=== PATIENT | female | born 1980 | race Caucasian/White ===

== ENCOUNTER 2023-02-11 06:22 | Inpatient (IN) | payer MEDICAID, SELFPAY ==
[2023-02-11] VITALS (85 sets, daily range): BP systolic 101–138; BP diastolic 59–84; PULSE 66–106; RESP 9–29; TEMP 36.5–37.5; O2SAT 96–100; BMI 26.8
--- NOTE | 2023-02-11 | DI.RAD_ITS ---
Exam(s) XR PORTABLE CHEST AP EXAM: XR PORTABLE CHEST AP CLINICAL HISTORY: post subclavian line placement TECHNIQUE: 2D digital imaging was performed of the chest. One image was obtained. An AP view was ob tained. COMPARISON: CT RENAL COLIC WO CONTRAST from 04/25/2012 CT ABD PELVIS WITH CONTRAST from 06/18/2012 FINDINGS: MEDIASTINUM: Normal. HEART: Normal. PULMONARY VASCULATURE: Normal. LUNGS: Clear. PLEURAL SPACE: No pleural effusion or pneumothorax. BONE:Within normal limits for the patient's age. There is an old healed right clavicular fracture. OTHER FINDINGS:The tip of the right subclavian line is seen within the right atrium. The tip of the enteric tube is in good position in the stomach. IMPRESSION: 1. The right subclavian line is in place with its tip in the upper right atrium. 2. No evidence of a pneumothorax. 3. The enteric tube is in good position with its tip in the stomach. DATA REPOSITORY: RADIATION DOSE DELIVERED:
--- NOTE | 2023-02-11 06:34 | W.ED.GENAD ---
Discharge Plan Discharge Details Chief Complaint: Abd Prob Primary Care Provider: Margarette,Local ED Provider: John Falcon Home Meds and New Rx's Prescriptions: No Action methadone 10 mg/5 mL Solution 90 mg PO DAILY Medical Decision Making 42-year-old female with a past medical history of appendectomy, tonsillectomy, type 2 diabetes when she was obese before, but this is resolved with weight loss, and history of IV drug use, who presents today for evaluation of right upper quadrant pain, nausea and vomiting. Pain has been present for the last month, and comes and goes in severity. It seems to be associated with food and diet occasionally. However over the last 24 to 48 hours it became severe. She has been vomiting. She did take fentanyl which only minimally helped with the pain. She denies any chest pain or shortness of breath. No urinary complaints. No other complaints at this time. Exam demonstrates a surprisingly large palpable mass in the right upper quadrant. Concern for enlarged gallbladder/cholecystitis. We will get CT scan, treat her pain, rehydrate, monitor closely and reassess. Patient will be signed out to my colleague for follow-up on labs and imaging and reassessment. HPI General Date/Time Provider Initiated Documentation: 02/11/23 06:32. HPI Narrative: 42-year-old female with a past medical history of appendectomy, tonsillectomy, type 2 diabetes when she was obese before, but this is resolved with weight loss, and history of IV drug use, who presents today for evaluation of right upper quadrant pain, nausea and vomiting. Pain has been present for the last month, and comes and goes in severity. It seems to be associated with food and diet occasionally. However over the last 24 to 48 hours it became severe. She has been vomiting. She did take fentanyl which only minimally helped with the pain. She denies any chest pain or shortness of breath. No urinary complaints. No other complaints at this time. Related Data Home Medications Medication Instructions Recorded Confirmed methadone 10 mg/5 mL oral solution 90 mg PO DAILY 02/11/23 02/11/23 Allergies Allergy/AdvReac Type Severity Reaction Status Date / Time No Known Allergies Allergy Unverified 02/11/23 06:34 General Stated Complaint: Abd Prob FAUSTINO: 3 Review of Systems All systems reviewed & are unremarkable except as noted in HPI and below PFSH All Active Problems Diarrhea (Active) Medical History Depression (~2002) situational. took meds x6mo. no PP depression. Diabetes mellitus, type 2 Class C. Onset 21yo. doesnt take meds or see MDs when not . Nl eye exam 08/2015. Obesity 08/2015 BMI 34. Tobacco use Surgical History Appendectomy Tonsillectomy and adenoidectomy Family History Mother Ulcerative colitis Social History Smoking/Tobacco Use Status: Current every day Tobacco Type: cigarettes Smoking risk assessment performed?: Yes Alcohol Intake: former Drug use: Never Substance use type: opiates Exam Narrative Exam Narrative: 1.Const: Well-nourished, Well-developed, appearing stated age 2.Eyes: PERRL, no conjunctival injection, and symmetrical lids. 3.ENT: Atraumatic external nose and ears. Moist MM. Neck: Symmetric, trachea midline, No thyromegaly. 4.CVS: +S1/S2, No murmurs or gallops. Peripheral pulses 2+ and equal in all extremities. Brisk capillary refill in all extremities. 5.RESP: Unlabored respiratory effort. Clear to auscultation bilaterally. No wheezes rales or rhonchi 6.GI: Soft, patient demonstrates tenderness in the right upper quadrant, there is a palpable mass which I suspect is the bladder in the right upper quadrant. Notably tender. Voluntary guarding. Rebound is present.. 7.MSK: Normocephalic/Atraumatic, Extremities w/o deformity or ttp No cyanosis or clubbing, Normal movement of all extremities 8.Skin: Warm, Dry. No rashes or lesions. 9.Neuro: manager fund II-XII grossly intact. Sensation grossly intact, no focal neurologic deficits. 10.Psych: (AAO) x3. Appropriate mood and affect Course Vital Signs Vital signs: Vital Signs Temperature 36.5 C 02/11/23 06:28 Pulse 106 H 02/11/23 06:28 Respiratory Rate 16 02/11/23 06:28 Blood Pressure 115/68 02/11/23 06:28 Pulse Oximetry 100 02/11/23 06:28 Temperature 36.5 C 02/11/23 06:28 Pulse 106 H 02/11/23 06:28 Respiratory Rate 16 02/11/23 06:28 Respiratory Effort Normal 02/11/23 06:28 Blood Pressure 115/68 02/11/23 06:28 Blood Pressure Position Supine 02/11/23 06:28 Pulse Oximetry 100 02/11/23 06:28 Oxygen Delivery Method Room Air 02/11/23 06:28 Oxygen Flow Rate 0 02/11/23 06:28 Pain Level 10 02/11/23 06:28
[2023-02-11 06:59] LABS: Abs Immature Grans 0.07 10^3/uL (0.0-0.06); Absolute Basophil Count 0.07 10^3/uL (0.0-0.2); Absolute Eosinophil Count 0.29 10^3/uL (0.0-0.7); Absolute Monocyte Count 1.12 10^3/uL (0.1-0.8); Basophils % 0.4; Eosinophils % 1.6; HCT 28.4 % (36.0-46.0); HGB 9.1 g/dL (11.2-15.7); Immature Grans % 0.4; MCH 25.1 pg (27.0-33.0); MCV 78 fL (80-95); MPV 8.5 fL (8.0-11.0); Monocytes % 6.1; Neutrophils % 79.5; RBC 3.63 10^6/uL (3.93-5.22); RDW 18.7 % (11.7-14.6); RDW-SD 52.9 fL; WBC 18.32 10^3/uL (4.4-10.8)
[2023-02-11] MEDS: Normal Saline 1,000 ML 1000 ML IV (06:59)
[2023-02-11] MEDS: Ondansetron 4 MG/2 ML VIAL IVP (07:00)
[2023-02-11] MEDS: Ketorolac 15 MG/ML VIAL IVP ×3 (07:02→23:17)
[2023-02-11 07:07] LABS: Absolute Neutrophil Count 14.56 10^3/uL (1.2-6.7)
[2023-02-11 07:10] LABS: PTT Activated 27.9 sec (21.5-31.9); Prothrombin Time 10.1 sec (9.3-11.0)
[2023-02-11 07:14] LABS: ALT 39 U/L (14-59); AST 30 U/L (15-37); Albumin 2.1 g/dL (3.4-5.0); Alkaline Phosphatase 531 U/L (46-116); Anion Gap 7.2 mmol/L (3-11); BUN 9 mg/dL (7-18); Bilirubin, Direct 0.9 mg/dL (0.0-0.2); CO2 30.8 mmol/L (21.0-32.0); CREATININE 0.8 mg/dL (0.55-1.02); Calcium 8.8 mg/dL (8.5-10.1); Chloride 98 mmol/L (98-107); Estimated GFR 95.46 (mL/min/1.73m2); Glucose 161 mg/dL (74-106); Lipase 69 U/L (16-77); Potassium 3.3 mmol/L (3.5-5.1); Sodium 136 mmol/L (136-145); Total Protein 8.8 g/dL (6.4-8.2)
[2023-02-11 07:15] LABS: Diff Comment Diff Reviewed; Hypochromasia 1+; Platelet Count 907 10^3/uL (130-400); Poikilocytes 2+
[2023-02-11] MEDS: Omnipaque 350 MG/ML 100 ML BTL IJ (07:53)
[2023-02-11] MEDS: Normal Saline - Diluent 50 ML VIAL IV (07:54)
--- NOTE | 2023-02-11 08:12 | DI.CT_ITS ---
Exam(s) CT ABDOMEN PELVIS W EXAM: CT ABDOMEN PELVIS W CLINICAL HISTORY: ruq pain. TECHNIQUE: Imaging Protocol: Axial computed tomography images with coronal and sagittal reformatted images were created and reviewed CONTRAST MATERIAL: Intravenous: Omnipaque 350 Contrast volume:100 ml Oral: no COMPARISON: CT ABD PELVIS WITH CONTRAST from 06/18/2012 FINDINGS: ABDOMEN: Lung Bases: Normal where visualized. Liver: Normal density. No measurable mass. Fluid tracking along portal veins. Inflammation of portion of the liver adjacent to the gallbladder. Gallbladder and biliary tract: Gallbladder wall is extremely thickened. There is no air within the ga llbladder wall. There is a large amount of inflammatory tissue. Stones are noted within the lumen. Th e inflammation affects the adjacent hepatic flexure. There is no biliary dilatation or biliary air.. The pancreas is unremarkable. Pancreas: Normal density, no abnormal calcifications or inflammatory process. Spleen: Normal. Kidneys: Normal size, contour and axis. No radiodense stones or obstructive uropathy. No suspicious m asses seen. Adrenal glands: No masses seen. Abdominal Aorta: Abdominal portion non-dilated. Soft tissues: Unremarkable. PELVIS: Bladder: No gross wall thickening. No calculi.No focal mass. Bowel: No obstruction. No bowel wall thickening. Appendix normal. Peritoneal cavity: There is a small amount of fluid around the liver extending along the right par[place] lic gutter into the pelvis. Bones: Within normal limits for age. Reproductive organs: Within normal limits. Lymph nodes: Unremarkable. Impression: Severe inflammation of the gallbladder consistent with acute cholecystitis. Gallstones are present. T here is no biliary dilatation. Findings discussed with Dr. Pearl of the emergency department. RADIATION DOSE DELIVERED: 813.87mGy.cm Total DLP DATA REPOSITORY: All CT scans at this facility are submitted to the National Radiology Data Registry (NRDR) Dose Index Registry (DIR) with the [employer] (A[employer]). RADIATION OPTIMIZATION: All CT scans at this facility use at least one of these dose optimization te chniques: automated exposure control; mA and/or kV adjustment per patient size (includes targeted exa ms where dose is matched to clinical indication); or iterative reconstruction.
[2023-02-11] MEDS: PIPERACILLIN/TAZO 4.5 GM in Normal Saline 100 ML IVPB (08:14)
[2023-02-11 08:36] LABS: Bilirubin Negative (Negative); Blood Negative (Negative); Clarity Clear (Clear); Glucose Negative (Negative); Ketones Trace mg/dL (Negative); Leukocyte Esterase Negative (Negative); Nitrite Negative (Negative); Specific Gravity 1.015 (1.005-1.025)
[2023-02-11 09:11] LABS: *AMPHETAMINES SCREEN URINE Negative (Negative); *BARBITURATES SCREEN URINE Negative (Negative); *BENZODIAZEPINES SCREEN URINE Negative (Negative); Cannabinoids THC Negative (Negative); Cocaine Screen,Urine Positive (Negative); METHADONE URINE SCREEN Negative (Negative); OPIATES URINE SCREEN Positive (Negative); Tricyclic Antidepressants Negative (Negative)
[2023-02-11 09:40] LABS: Abs Immature Grans 0.09 10^3/uL (0.0-0.06); Basophils % 0.5; Eosinophils % 1.5; HCT 23.3 % (36.0-46.0); HGB 7.4 g/dL (11.2-15.7); Immature Grans % 0.5; Lymphocytes % 13.7; MCH 25.3 pg (27.0-33.0); MCHC 31.8 % (32.0-36.0); MCV 80 fL (80-95); Monocytes % 4.7; Neutrophils % 79.1; RBC 2.93 10^6/uL (3.93-5.22); RDW 18.8 % (11.7-14.6); RDW-SD 54.1 fL; WBC 19.71 10^3/uL (4.4-10.8)
[2023-02-11 09:42] LABS: Absolute Monocyte Count 0.93 10^3/uL (0.1-0.8); Absolute Neutrophil Count 15.59 10^3/uL (1.2-6.7)
[2023-02-11 09:51] LABS: C-Reactive Protein 5.09 mg/dL (0.0-0.3); Lipase 58 U/L (16-77)
--- NOTE | 2023-02-11 10:00 | RT.EKG_ITS ---
APPROVED REPORT Exam: Resting ECG Reason for Exam: preop Patient Location: E HR:73 bpm ECG Measurements Heart Rate 73 AXIS CA 137 P 65 QRSd 84 QRS 66 QT 405 T 31 QTc 448 Conclusion Sinus arrhythmia...V-rate 64- 83, variation>10%
--- NOTE | 2023-02-11 10:04 | W.ANESPRE ---
General Info Date of Service Date Performed: 02/11/23 Height: 5 ft 5 in Weight: 73.028 kg Body Mass Index (BMI): 26.8 Meds Allergies and Home Medications Allergies Allergy/AdvReac Type Severity Reaction Status Date / Time No Known Allergies Allergy Unverified 02/11/23 06:34 Home Medication Medication Instructions Recorded methadone 10 mg/5 mL oral solution 90 mg PO DAILY 02/11/23 Current Visit Medications: Current Medications Generic Name Dose Route Start Last Admin Trade Name Jae PRN Reason Stop Dose Admin Iohexol 100 ml 02/11/23 08:00 02/11/23 07:53 Omnipaque 350 Mg/Ml 100 Ml Btl IJ 03/13/23 23:59 100 ml DIRECTED ANEUDY Administration Sodium Chloride 50 ml 02/11/23 08:00 02/11/23 07:54 Normal Saline - Diluent 50 Ml Vial IV 50 ml .FOR DI USE ANEUDY Administration PFSH Active Problems Active Problems: Problem Status Onset Code Diarrhea R19.7 Medical History Medical History Depression (~2002) situational. took meds x6mo. no PP depression. Diabetes mellitus, type 2 Class C. Onset 21yo. doesnt take meds or see MDs when not . Nl eye exam 08/2015. Obesity 08/2015 BMI 34. Tobacco use Surgical History Surgical History Appendectomy Tonsillectomy and adenoidectomy Tobacco Smoking/Tobacco Use Status: Current every day Tobacco Type: cigarettes Alcohol Alcohol Intake: former Substance Use Substance use: Never Substance use type: opiates Vital Signs and Lab Results Vital Signs Most Recent Vital Signs in EMR: Most Recent Vital Signs Temp Pulse Resp BP Pulse Ox 36.5 C 106 H 16 115/68 100 02/11/23 06:28 02/11/23 06:28 02/11/23 06:28 02/11/23 06:28 02/11/23 06:28 Point of Care Results Point of Care Results: POC- Test(urine) Negative 02/11/23 09:06 Lab Results 02/11/23 06:50 02/11/23 06:50 Blood Type / Crossmatch: Patient ABO/Rh A Positive 02/11/23 Antibody Screen NEGATIVE 02/11/23 Crossmatch See Detail 02/11/23 Complete Blood Count: White Blood Count 19.71 10^3/uL (4.4-10.8) H 02/11/23 09:15 Red Blood Count 2.93 10^6/uL (3.93-5.22) L 02/11/23 09:15 Hemoglobin 7.4 g/dL (11.2-15.7) L 02/11/23 09:15 Hematocrit 23.3 % (36.0-46.0) L 02/11/23 09:15 Platelet Count 1062 10^3/uL (130-400) H* 02/11/23 09:15 Venous Blood Lactate 1.0 mmol/L (0.6-1.4) 02/11/23 06:50 Complete Metabolic Panel: Sodium 136 mmol/L (136-145) 02/11/23 06:50 Potassium 3.3 mmol/L (3.5-5.1) L 02/11/23 06:50 Chloride 98 mmol/L (98-107) 02/11/23 06:50 Carbon Dioxide 30.8 mmol/L (21.0-32.0) 02/11/23 06:50 BUN 9 mg/dL (7-18) 02/11/23 06:50 Creatinine 0.8 mg/dL (0.55-1.02) 02/11/23 06:50 Est GFR (CKD-EPI 2020) 95.46 (mL/min/1.73m2) 02/11/23 06:50 Calcium 8.8 mg/dL (8.5-10.1) 02/11/23 06:50 Albumin 2.1 g/dL (3.4-5.0) L 02/11/23 06:50 Glucose 161 mg/dL (74-106) H 02/11/23 06:50 C-Reactive Protein 5.09 mg/dL (0.0-0.3) H 02/11/23 09:15 Liver Function Panel: Alanine Aminotransferase (ALT/SGPT) 39 U/L (14-59) 02/11/23 06:50 Aspartate Amino Transf (AST/SGOT) 30 U/L (15-37) 02/11/23 06:50 Coagulation Panel: INR International Normalized Ratio 1.0 (0.9-1.1) 02/11/23 06:50 Prothrombin Time 10.1 sec (9.3-11.0) 02/11/23 06:50 Activated Partial Thromboplast Time 27.9 sec (21.5-31.9) 02/11/23 06:50 Cardiac Panel: No Data to Display Arterial Blood Gas: No Data to Display Venous Blood Gas: No Data to Display Pancreas Panel: Lipase 58 U/L (16-77) 02/11/23 09:15 Thyroid Panel: No Data to Display Infectious Disease: Coronavirus (COVID-19)(PCR) Negative (Negative) 02/11/23 10:25 Coronavirus 2019 Source Nasal/Nares 02/11/23 10:25 HIV (1&2) Ag and Ab, 4th Generation Pending 02/11/23 09:30 Hepatitis C Antibody Pending 02/11/23 09:30 Blood Cultures: No Data to Display Toxicology Panel: Urine Amphetamines Screen Negative (Negative) 02/11/23 08:13 Urine Benzodiazepines Screen Negative (Negative) 02/11/23 08:13 Urine Barbiturates Screen Negative (Negative) 02/11/23 08:13 Urine Cocaine Screen Positive (Negative) A 02/11/23 08:13 Urine Methadone Screen Negative (Negative) 02/11/23 08:13 Urine Opiates Screen Positive (Negative) A 02/11/23 08:13 Ur Tricyclic Antidepressants Screen Negative (Negative) 02/11/23 08:13 Ur Tetrahydrocannabinol (THC) Scrn Negative (Negative) 02/11/23 08:13 Panel: No Data to Display Anesthesia Assessment and Plan Anesthesia History Personal History: No History of Anesthesia Complications Family History: No Family History of Anesthesia Complications Exercise Tolerance Exercise Tolerance: Metabolic Equivalents>4 Cardiac & Pulmonary Exam Cardiac Exam: Normal S1/S2 Heart Sounds Pulmonary Exam: Clear Bilateral Breath Sounds Implantable Cardiac Device Does patient have a Pacemaker or an ICD?: No Airway Exam Known Difficult Airway: No Mallampati Class: 2 Mouth Opening: Normal (> 3cm) Thyromental Distance: Greater than 3 cm Neck Range of Motion: Full ROM Neck Circumference: Normal Teeth Condition: Normal Dentition ASA Classification ASA Score: ASA 3 Emergency Case?: Yes NPO Status NPO Status: NPO Clears >2 hours, Solids >8 hours Status Status: Negative HCG Anesthesia Plan Resuscitation Status: Full Code Anesthesia Technique: General Anesthesia Airway Planned: Endotracheal Tube Pain Management: Surgeon and patient request nerve block Monitors Used: Standard Monitors, Arterial Line (+/-) and Central Line (+/-) Preoperative Comments:: 42 yo female how presented to the ED today with abdominal pain. CT scan shows severe inflammation of the gallbladder. pip/adina, ketorolac, zofran, 1000 mL NS, and KCL given in the ED. currently in the ICU getting blood. Sig PMHx: IVDU/cocaine (used fentanyl last night, methadone also listed on med list, UDS + for cocaine and opiates. hasn't had methadone in ~ 2 weeks, has been using a bag or two of fentanyl a day), depression, DM2 (resolved with weight loss), smoker, plt: 1000 hgb: 7.4 EKG: SR. Discussed risk, benefits, and alternatives of GA, art line, central line, epidural, ESPB. She is not interested in an epidural at this time as she doesn't feel that she can sit still to have it done given her pain. Plan: GA, +/- art line/central line, ESPB.
[2023-02-11 10:20] LABS: Procalcitonin 0.1 ng/mL
[2023-02-11 10:22] LABS: Diff Comment Diff Reviewed; Hypochromasia 1+; Platelet Count 1062 10^3/uL (130-400)
[2023-02-11 10:34] LABS: Source Nasal/Nares
[2023-02-11] MEDS: POTASSIUM CHLORIDE 10 MEQ/100 ML BAG 100 MEQ IVPB (10:42)
[2023-02-11] MEDS: MORPHine 2 MG/ML SYR IVP (10:45)
[2023-02-11 11:37] LABS: COVID-19 PCR Negative (Negative)
[2023-02-11] MEDS: ACETAMINOPHEN 1,000 MG/100 ML BTL 400 MG IVPB ×3 (11:38→23:17)
[2023-02-11] MEDS: diphenhydrAMINE 50 MG/ML VIAL 25 MG IVP (12:14)
[2023-02-11] MEDS: MORPHine 4 MG/ML SYR 2 MG IVP (13:19)
[2023-02-11] MEDS: ELECTROLYTE-R SOLUTION 1,000 ML 30 ML IV ×2 (14:01→17:55)
--- NOTE | 2023-02-11 14:11 | W.PM.HP.N ---
Date of service: 02/11/23 Time of Service: 09:00 Assessment and Plan Assessment and plan (1) Acute gangrenous cholecystitis: Status: Acute Assessment and plan: -admit ICU -hospitalists consulted for pain management/sepsis control and detoxing -zosyn OR for open filiberto high risk for surgery due to substance use and sepsis PT will require open cholecystectomy. Risks including: bleeding, infection, pneumonia, blood clots, complications of anesthesia, damage to bowel, bladder, blood vessels, or bile ducts, liver. Pt will require blood transfusions. becuase of the Degree of infection, patient is a high risk profile the injury, bowel injury, bile duct injury, recurrent infections, hernias, and other. We will need to leave the skin open and close at later date She will have ngt/lomeli/wound vac/central line/A line. - We will have issue w/ pain control and consider ketamine drip for postOP pain control. I did review her CT w/ radiology. 60 minutes spent in consultation today (2) Intravenous drug abuse, continuous: Status: Acute (3) Depression: (4) Tobacco use: (5) Sepsis: Status: Acute (6) Diarrhea: Status: Active (7) Diabetes mellitus, type 2: History of Present Illness Narrative: Pt presented to the ER w/ N/V and abdominal pain. Pt states she has really been sick for the past 2 months. FOr the past 2 weeks shes had severe pain and hasn't even been able to keep her methadone appointments. She has just been using IV fently and crack cocaine for pain control. She last ate at 3am. She last used drugs at 12 midnight. She does not seek regular medical care No prescription meds other than methadone. She has not had methadone in the last 2 wks. PShx T&A as child ruptured appendix no problems w/ anesthesia that she is aware of +tobacco Review of Systems Narrative: fever/chills N/V abdominal pain and diarrhea IVDA All systems reviewed & are unremarkable except as noted in HPI and below PFSH All Active Problems (Updated 02/11/23 @ 14:21 by Johanne Ruiz DO) Tobacco use (Acute 08/29/15) Sepsis (Acute) Intravenous drug abuse, continuous (Acute) Acute gangrenous cholecystitis (Acute) Diarrhea (Active) Medical History Depression (~2002) situational. took meds x6mo. no PP depression. Diabetes mellitus, type 2 Class C. Onset 21yo. doesnt take meds or see MDs when not . Nl eye exam 08/2015. Obesity 08/2015 BMI 34. Tobacco use Surgical History Appendectomy Tonsillectomy and adenoidectomy Family History Mother Ulcerative colitis Social History Smoking/Tobacco Use Status: Current every day Tobacco Type: cigarettes Smoking risk assessment performed?: Yes Alcohol Intake: former Drug use: Never Substance use type: opiates Meds Allergies and Home Medications Allergies Allergy/AdvReac Type Severity Reaction Status Date / Time No Known Allergies Allergy Unverified 02/11/23 06:34 Home Medications Medication Instructions Recorded Confirmed Type methadone 10 mg/5 mL oral solution 90 mg PO DAILY 02/11/23 02/11/23 History Exam Const General: cooperative, No well groomed, anxious, disheveled and ill appearing Nutritional Appearance: malnourished HENMT Other: No jaundice poor dentition Resp Effort & Inspection: normal respiratory effort and able to speak in complete sentences Auscultation: clear to auscultation bilaterally Cardio Rate: regular rate Rhythm: regular rhythm GI Other: firm mass in the RUQ. localized rebound and guarding. no BS post sx changes at umbilicus. No hernia Extrem Other: muscle wasting mult tattoos adn pericings. mult appears of skin popping. skin infections in varies degrees of healing 2x2cm abscess LLE. Results Labs 02/11/23 09:15 02/11/23 06:50 Labs: Laboratory Results - last 24 hr 02/11/23 02/11/23 02/11/23 06:50 06:50 06:50 WBC RBC Hgb Hct MCV MCH MCHC RDW Plt Count MPV Immature Gran % Neutrophils % Lymphocytes % Monocytes % Eosinophils % Basophils % Nucleated RBC % Absolute Neutrophils Absolute Lymphocytes Absolute Monocytes Absolute Eosinophils Absolute Basophils RBC Morphology Hypochromasia Poikilocytosis PT INR APTT VBG Lactate 1.0 Sodium 136 Cancelled Potassium 3.3 L Cancelled Chloride 98 Cancelled Carbon Dioxide 30.8 Cancelled Anion Gap 7.2 Cancelled BUN 9 Cancelled Creatinine 0.8 Cancelled Est GFR (CKD-EPI 2020) 95.46 Cancelled Glucose 161 H Cancelled Calcium 8.8 Cancelled Total Bilirubin 1.0 Cancelled Conjugated Bilirubin 0.9 H AST 30 Cancelled ALT 39 Cancelled Alkaline Phosphatase 531 H Cancelled C-Reactive Protein Total Protein 8.8 H Cancelled Albumin 2.1 L Cancelled Lipase 69 Procalcitonin Urine Color Urine Clarity Urine pH Ur Specific [place] Urine Protein Urine Ketones Urine Blood Urine Nitrite Urine Bilirubin Urine Urobilinogen Ur Leukocyte Esterase Urine Glucose Urine Opiates Screen Urine Methadone Screen Ur Barbiturates Screen Ur Tricyclics Screen Ur Amphetamines Screen U Benzodiazepines Scrn Urine Cocaine Screen Ur THC Screen COVID-19 Source SARS-CoV-2 (PCR) Patient ABO/Rh Antibody Screen Crossmatch 02/11/23 02/11/23 02/11/23 06:50 06:50 08:13 WBC 18.32 H RBC 3.63 L Hgb 9.1 L Hct 28.4 L MCV 78 L MCH 25.1 L MCHC 32.0 RDW 18.7 H Plt Count 907 H* MPV 8.5 Immature Gran % 0.4 Neutrophils % 79.5 Lymphocytes % 12.0 Monocytes % 6.1 Eosinophils % 1.6 Basophils % 0.4 Nucleated RBC % 0.0 Absolute Neutrophils 14.56 H Absolute Lymphocytes 2.20 Absolute Monocytes 1.12 H Absolute Eosinophils 0.29 Absolute Basophils 0.07 RBC Morphology See Below Hypochromasia 1+ Poikilocytosis 2+ PT 10.1 INR 1.0 APTT 27.9 VBG Lactate Sodium Potassium Chloride Carbon Dioxide Anion Gap BUN Creatinine Est GFR (CKD-EPI 2020) Glucose Calcium Total Bilirubin Conjugated Bilirubin AST ALT Alkaline Phosphatase C-Reactive Protein Total Protein Albumin Lipase Procalcitonin Urine Color Yellow Urine Clarity Clear Urine pH 8.0 Ur Specific [place] 1.015 Urine Protein Negative Urine Ketones Trace H Urine Blood Negative Urine Nitrite Negative Urine Bilirubin Negative Urine Urobilinogen 1.0 H Ur Leukocyte Esterase Negative Urine Glucose Negative Urine Opiates Screen Urine Methadone Screen Ur Barbiturates Screen Ur Tricyclics Screen Ur Amphetamines Screen U Benzodiazepines Scrn Urine Cocaine Screen Ur THC Screen COVID-19 Source SARS-CoV-2 (PCR) Patient ABO/Rh Antibody Screen Crossmatch 02/11/23 02/11/23 02/11/23 08:13 09:15 09:15 WBC 19.71 H RBC 2.93 L Hgb 7.4 L Hct 23.3 L MCV 80 MCH 25.3 L MCHC 31.8 L RDW 18.8 H Plt Count 1062 H* MPV 9.0 Immature Gran % 0.5 Neutrophils % 79.1 Lymphocytes % 13.7 Monocytes % 4.7 Eosinophils % 1.5 Basophils % 0.5 Nucleated RBC % 0.0 Absolute Neutrophils 15.59 H Absolute Lymphocytes 2.70 Absolute Monocytes 0.93 H Absolute Eosinophils 0.30 Absolute Basophils 0.10 RBC Morphology See Below Hypochromasia 1+ Poikilocytosis PT INR APTT VBG Lactate Sodium Potassium Chloride Carbon Dioxide Anion Gap BUN Creatinine Est GFR (CKD-EPI 2020) Glucose Calcium Total Bilirubin Conjugated Bilirubin AST ALT Alkaline Phosphatase C-Reactive Protein 5.09 H Total Protein Albumin Lipase 58 Procalcitonin Urine Color Urine Clarity Urine pH Ur Specific [place] Urine Protein Urine Ketones Urine Blood Urine Nitrite Urine Bilirubin Urine Urobilinogen Ur Leukocyte Esterase Urine Glucose Urine Opiates Screen Positive A Urine Methadone Screen Negative Ur Barbiturates Screen Negative Ur Tricyclics Screen Negative Ur Amphetamines Screen Negative U Benzodiazepines Scrn Negative Urine Cocaine Screen Positive A Ur THC Screen Negative COVID-19 Source SARS-CoV-2 (PCR) Patient ABO/Rh Antibody Screen Crossmatch 02/11/23 02/11/23 02/11/23 09:15 10:25 10:35 WBC RBC Hgb Hct MCV MCH MCHC RDW Plt Count MPV Immature Gran % Neutrophils % Lymphocytes % Monocytes % Eosinophils % Basophils % Nucleated RBC % Absolute Neutrophils Absolute Lymphocytes Absolute Monocytes Absolute Eosinophils Absolute Basophils RBC Morphology Hypochromasia Poikilocytosis PT INR APTT VBG Lactate Sodium Potassium Chloride Carbon Dioxide Anion Gap BUN Creatinine Est GFR (CKD-EPI 2020) Glucose Calcium Total Bilirubin Conjugated Bilirubin AST ALT Alkaline Phosphatase C-Reactive Protein Total Protein Albumin Lipase Procalcitonin 0.1 Urine Color Urine Clarity Urine pH Ur Specific [place] Urine Protein Urine Ketones Urine Blood Urine Nitrite Urine Bilirubin Urine Urobilinogen Ur Leukocyte Esterase Urine Glucose Urine Opiates Screen Urine Methadone Screen Ur Barbiturates Screen Ur Tricyclics Screen Ur Amphetamines Screen U Benzodiazepines Scrn Urine Cocaine Screen Ur THC Screen COVID-19 Source Nasal/Nares SARS-CoV-2 (PCR) Negative Patient ABO/Rh A Positive Antibody Screen NEGATIVE Crossmatch See Detail Last Vital Signs Temp 37.3 C 02/11/23 13:12 Pulse 102 H 02/11/23 13:12 Resp 22 02/11/23 13:12 BP 106/81 02/11/23 13:12 Pulse Ox 96 02/11/23 12:55 Anemia profile Hgb 7.4 g/dL (11.2-15.7) L 02/11/23 Hct 23.3 % (36.0-46.0) L 02/11/23 MCV 80 fL (80-95) 02/11/23 RDW 18.8 % (11.7-14.6) H 02/11/23 Basic Metabolic Sodium 136 mmol/L (136-145) 02/11/23 Potassium 3.3 mmol/L (3.5-5.1) L 02/11/23 Chloride 98 mmol/L (98-107) 02/11/23 Carbon Dioxide 30.8 mmol/L (21.0-32.0) 02/11/23 BUN 9 mg/dL (7-18) 02/11/23 Creatinine 0.8 mg/dL (0.55-1.02) 02/11/23 Glucose 161 mg/dL (74-106) H 02/11/23 CBC White Blood Count 19.71 10^3/uL (4.4-10.8) H 02/11/23 Red Blood Count 2.93 10^6/uL (3.93-5.22) L 02/11/23 Hemoglobin 7.4 g/dL (11.2-15.7) L 02/11/23 Hematocrit 23.3 % (36.0-46.0) L 02/11/23 Mean Corpuscular Volume 80 fL (80-95) 02/11/23 Mean Corpuscular Hemoglobin 25.3 pg (27.0-33.0) L 02/11/23 Mean Corpuscular Hemoglobin Concent 31.8 % (32.0-36.0) L 02/11/23 Red Cell Distribution Width 18.8 % (11.7-14.6) H 02/11/23 Platelet Count 1062 10^3/uL (130-400) H* 02/11/23 Mean Platelet Volume 9.0 fL (8.0-11.0) 02/11/23 Neutrophils % 79.1 02/11/23 Lymphocytes % 13.7 02/11/23 Monocytes % 4.7 02/11/23 Eosinophils % 1.5 02/11/23 Basophils % 0.5 02/11/23 Immature Granulocytes % 0.5 02/11/23 Comprehensive Metabolic Panel Sodium 136 mmol/L (136-145) 02/11/23 06:50 Potassium 3.3 mmol/L (3.5-5.1) L 02/11/23 06:50 Chloride 98 mmol/L (98-107) 02/11/23 06:50 Carbon Dioxide 30.8 mmol/L (21.0-32.0) 02/11/23 06:50 BUN 9 mg/dL (7-18) 02/11/23 06:50 Creatinine 0.8 mg/dL (0.55-1.02) 02/11/23 06:50 Glucose 161 mg/dL (74-106) H 02/11/23 06:50 Calcium 8.8 mg/dL (8.5-10.1) 02/11/23 06:50 Conjugated Bilirubin 0.9 mg/dL (0.0-0.2) H 02/11/23 06:50 Total Bilirubin 1.0 mg/dL (0.2-1.0) 02/11/23 06:50 ALT 39 U/L (14-59) 02/11/23 06:50 AST 30 U/L (15-37) 02/11/23 06:50 Alkaline Phosphatase 531 U/L (46-116) H 02/11/23 06:50 Total Protein 8.8 g/dL (6.4-8.2) H 02/11/23 06:50 Albumin 2.1 g/dL (3.4-5.0) L 02/11/23 06:50 Diabetes results Hemoglobin A1c 6.6 % (4.5-6.2) H 07/02/15 Glucose 161 mg/dL (74-106) H 02/11/23 Microalb/Creat Ratio 3.8 ug/mg CR 05/10/13 LDL Cholesterol Direct 141 mg/dL 09/10/13 HDL Cholesterol 36 mg/dL (40-60) L 09/10/13 Triglycerides 111 mg/dL (15-150) 09/10/13 BUN 9 mg/dL (7-18) 02/11/23 Creatinine 0.8 mg/dL (0.55-1.02) 02/11/23 Est GFR (CKD-EPI 2020) 95.46 (mL/min/1.73m2) 02/11/23 Sodium 136 mmol/L (136-145) 02/11/23 Potassium 3.3 mmol/L (3.5-5.1) L 02/11/23 Chloride 98 mmol/L (98-107) 02/11/23 Carbon Dioxide 30.8 mmol/L (21.0-32.0) 02/11/23 Calcium 8.8 mg/dL (8.5-10.1) 02/11/23 AST 30 U/L (15-37) 02/11/23 ALT 39 U/L (14-59) 02/11/23 Total Protein 8.8 g/dL (6.4-8.2) H 02/11/23 Albumin 2.1 g/dL (3.4-5.0) L 02/11/23 TSH 1.87 uIU/mL (0.36-3.74) 03/28/12 Time Spent Time spent with Patient: 55-74 minutes Time was spent: preparing to see the patient(eg.review tests), obtaining and/or reviewing separately otained hiistory, ordering medications,tests, procedures, referring, communicating with other health health careers instructor, indepentently interpreting results, counseling the patient and care coordination
[2023-02-11] MEDS: PIPERACILLIN/TAZO 3.375 GM in Normal Saline 50 ML IVPB ×2 (14:30→21:13)
--- NOTE | 2023-02-11 15:50 | SOFT_PTH ---
PATIENT: Mabel Barahona LOC: [id number]#:[id number] AGE/SX: 42/F ROOM: 209 RE02/11/[address]: Johanne Ruiz : 1980 BED: A DIS: 02/20/2023 SPEC #: [id number] RECD: 02/11/23 17:56 STATUS: AZAEL REQ #: [id number] BIRD: 02/11/23 15:[address]: Johanne Ruiz DEPT: Surgical Specimen RECD BY: Teagan Suarez ENTERED: 02/11/23 18:02 SP TYPE: SOFT OTHR DR: No Local Tissues: 1 - SOFT TISSUE MISC (INC. LIPOMA) Procedures: GROSS AND MICRO LEVEL 4 Comments: [id number]
[2023-02-11] MEDS: Lidocaine 1% Multi-Dose W/EPI 1/100,000 50 ML VIAL (16:22)
--- NOTE | 2023-02-11 16:55 | ROE_ITS ---
Date of service: 02/11/23 Time of Service: 16:55 Operative Note Operative Note DATE OF PROCEDURE: 02/11/23 PRE-OP DIAGNOSIS: acute cholecystitis/cholelithiasis w/ abscess POST-OP DIAGNOSIS: other (unressectible GB due to intense inflammation reaction) PROCEDURE: ex lap SURGEON: Johanne Ruiz SPRING INTERN: Ruth Acevedo ANESTHESIA TYPE: Local By Surgeon and General LMA/ETT Refer to Anesthesia Record ESTIMATED BLOOD LOSS: 100 PATHOLOGY: other COMPLICATIONS: None Patient was transported to: ICU Patient's condition: stable Procedure Description: Patient is a 42-year-old female who presented to the ER today with vomiting and abdominal pain. Patient has a CT scan and lab work consistent with a severe cholecystitis with abscess. Based on the severity of findings the patient will be taken for an open cholecystectomy and we will not even attempt laparoscopic. Patient also had a prior laparotomy for ruptured appendix. Informed consent is obtained explaining risks and benefits of the procedure including but not limited to: Bleeding, infection, pneumonia, blood clots, damage to bowel,, blood vessels or bile ducts necessitating further surgery. Complications of anesthesia. We will most likely need to leave the wound open because of the possibility of abscess. She will most likely have drains placed. We discussed that she will most likely have a prolonged stay in the hospital. She has an addiction to fentanyl and cocaine for which she has been using for the past 2 weeks, this puts her at risk for complications from anesthesia and issues with pain control. She has high risks for wound complications include dehiscence and hernia. She will need to receive blood prior to surgery. Patient is in agreement to surgery. Patient is brought to the operative room suite and placed supine position. Anesthesia is administered per the department of anesthesia. Central line is placed per anesthesia. Please see their notes. At this time they do not feel that an A line is required. She did receive preop Zosyn. NG tube and Yee catheter placed. The abdomen is prepped and draped in the usual sterile fashion using a ChloraPrep scrub solution. Timeout is performed. 30 cc of 1% lidocaine with epi is used for local anesthetization. #10 blade is used to make a standard Haritha incision in the right upper quadrant. Electrocautery was used to provide hemostasis and divide the oblique muscles and rectus. Kent's are used for retracting. Upon entering the abdomen, the abdomen is explored. Cultures are taken of the peritoneal fluid. There is a slight amount of serous fluid in the abdomen but there is no gross abscess. The NG tube is in good position. The liver has lost its normal sharp edges. There is some congestion to the liver and it is mildly enlarged. But there are no overt signs of cirrhosis. Liver is densely adhered to the anterior abdominal wall. I am able to get the liver off of the abdominal wall. the stomach and right colon and omentum are adhered up to the liver. The omentum is excised from the liver edge using electrocautery. The right colon flexure is taken down from the liver using blunt dissection's. There is a large amount of hard stool in the transverse colon. There are 2 areas each of 2 cm serosal tears made during the course of attempted dissection. From the liver. These are reapproximated with 4-0 Vicryl. There is no signs of any enteric leak. There is an intense inflammatory reaction and dense adhesions that make it nearly impossible to identify and dissect out any structures. I did attempt to enter into the lesser sac. There is dense and intense inflammatory reaction as well. The fatty tissue has the appearance of saponification from repeat episodes of pancreatitis. (There is no signs of acute pancreatitis on the CT and her lipase was within normal limits.) I spent 2 hours trying to dissect out the omentum, stomach and right colon from the gallbladder. There is intense inflammatory reaction that has caused dense adherence. I am unable to identify any surgical planes. At no point did we encounter any abscesses, or free bile. There is no signs of rupture of the gallbladder. It has become clear that this infection has been going on for a longstanding process and that proceeding with attempts at dissection is only only going to cause iatrogenic complication due to the inability to identify structures lack of clear surgical planes. the decision was made to abort the procedure. Again there was no signs of any acute infection/abscess in the abdomen. This seems to be quite longstanding in nature. 2 drains were placed: 1 in the right gutter, and the another placed into the gallbladder fossa. Both are brought out through separate stab incisions and secured with 2-0 Prolene. Interceed was placed under the incision. The anterior and posterior fascia was closed in 2 layers using 0 PDS in a running fashion. The fat pad is irrigated and then closed with 3-0 Vicryl in a running fashion. Skin is closed with filiberto. In a PICOS dressing is applied. Patient was then transferred to the ICU. Patient tolerated the procedure without any identified complications.
--- NOTE | 2023-02-11 17:09 | PGE_ITS ---
Date of Service Date of service: 02/11/23 Time of Service: 17:09 Subjective Subjective Interval history since last seen: 42 yr old female w/ hx of IVDA as well as use of cocaine Objective Last Vital Signs Temp 37.3 C 02/11/23 13:12 Pulse 102 H 02/11/23 13:12 Resp 22 02/11/23 13:12 BP 106/81 02/11/23 13:12 Pulse Ox 96 02/11/23 12:55 Laboratory Results - last 24 hr 02/11/23 02/11/23 02/11/23 06:50 06:50 06:50 WBC RBC Hgb Hct MCV MCH MCHC RDW Plt Count MPV Immature Gran % Neutrophils % Lymphocytes % Monocytes % Eosinophils % Basophils % Nucleated RBC % Absolute Neutrophils Absolute Lymphocytes Absolute Monocytes Absolute Eosinophils Absolute Basophils RBC Morphology Hypochromasia Poikilocytosis PT INR APTT VBG Lactate 1.0 Sodium 136 Cancelled Potassium 3.3 L Cancelled Chloride 98 Cancelled Carbon Dioxide 30.8 Cancelled Anion Gap 7.2 Cancelled BUN 9 Cancelled Creatinine 0.8 Cancelled Est GFR (CKD-EPI 2020) 95.46 Cancelled Glucose 161 H Cancelled Calcium 8.8 Cancelled Total Bilirubin 1.0 Cancelled Conjugated Bilirubin 0.9 H AST 30 Cancelled ALT 39 Cancelled Alkaline Phosphatase 531 H Cancelled C-Reactive Protein Total Protein 8.8 H Cancelled Albumin 2.1 L Cancelled Lipase 69 Procalcitonin Urine Color Urine Clarity Urine pH Ur Specific [place] Urine Protein Urine Ketones Urine Blood Urine Nitrite Urine Bilirubin Urine Urobilinogen Ur Leukocyte Esterase Urine Glucose Urine Opiates Screen Urine Methadone Screen Ur Barbiturates Screen Ur Tricyclics Screen Ur Amphetamines Screen U Benzodiazepines Scrn Urine Cocaine Screen Ur THC Screen COVID-19 Source SARS-CoV-2 (PCR) Patient ABO/Rh Antibody Screen Crossmatch 02/11/23 02/11/23 02/11/23 06:50 06:50 08:13 WBC 18.32 H RBC 3.63 L Hgb 9.1 L Hct 28.4 L MCV 78 L MCH 25.1 L MCHC 32.0 RDW 18.7 H Plt Count 907 H* MPV 8.5 Immature Gran % 0.4 Neutrophils % 79.5 Lymphocytes % 12.0 Monocytes % 6.1 Eosinophils % 1.6 Basophils % 0.4 Nucleated RBC % 0.0 Absolute Neutrophils 14.56 H Absolute Lymphocytes 2.20 Absolute Monocytes 1.12 H Absolute Eosinophils 0.29 Absolute Basophils 0.07 RBC Morphology See Below Hypochromasia 1+ Poikilocytosis 2+ PT 10.1 INR 1.0 APTT 27.9 VBG Lactate Sodium Potassium Chloride Carbon Dioxide Anion Gap BUN Creatinine Est GFR (CKD-EPI 2020) Glucose Calcium Total Bilirubin Conjugated Bilirubin AST ALT Alkaline Phosphatase C-Reactive Protein Total Protein Albumin Lipase Procalcitonin Urine Color Yellow Urine Clarity Clear Urine pH 8.0 Ur Specific [place] 1.015 Urine Protein Negative Urine Ketones Trace H Urine Blood Negative Urine Nitrite Negative Urine Bilirubin Negative Urine Urobilinogen 1.0 H Ur Leukocyte Esterase Negative Urine Glucose Negative Urine Opiates Screen Urine Methadone Screen Ur Barbiturates Screen Ur Tricyclics Screen Ur Amphetamines Screen U Benzodiazepines Scrn Urine Cocaine Screen Ur THC Screen COVID-19 Source SARS-CoV-2 (PCR) Patient ABO/Rh Antibody Screen Crossmatch 02/11/23 02/11/23 02/11/23 08:13 09:15 09:15 WBC 19.71 H RBC 2.93 L Hgb 7.4 L Hct 23.3 L MCV 80 MCH 25.3 L MCHC 31.8 L RDW 18.8 H Plt Count 1062 H* MPV 9.0 Immature Gran % 0.5 Neutrophils % 79.1 Lymphocytes % 13.7 Monocytes % 4.7 Eosinophils % 1.5 Basophils % 0.5 Nucleated RBC % 0.0 Absolute Neutrophils 15.59 H Absolute Lymphocytes 2.70 Absolute Monocytes 0.93 H Absolute Eosinophils 0.30 Absolute Basophils 0.10 RBC Morphology See Below Hypochromasia 1+ Poikilocytosis PT INR APTT VBG Lactate Sodium Potassium Chloride Carbon Dioxide Anion Gap BUN Creatinine Est GFR (CKD-EPI 2020) Glucose Calcium Total Bilirubin Conjugated Bilirubin AST ALT Alkaline Phosphatase C-Reactive Protein 5.09 H Total Protein Albumin Lipase 58 Procalcitonin Urine Color Urine Clarity Urine pH Ur Specific [place] Urine Protein Urine Ketones Urine Blood Urine Nitrite Urine Bilirubin Urine Urobilinogen Ur Leukocyte Esterase Urine Glucose Urine Opiates Screen Positive A Urine Methadone Screen Negative Ur Barbiturates Screen Negative Ur Tricyclics Screen Negative Ur Amphetamines Screen Negative U Benzodiazepines Scrn Negative Urine Cocaine Screen Positive A Ur THC Screen Negative COVID-19 Source SARS-CoV-2 (PCR) Patient ABO/Rh Antibody Screen Crossmatch 02/11/23 02/11/23 02/11/23 09:15 10:25 10:35 WBC RBC Hgb Hct MCV MCH MCHC RDW Plt Count MPV Immature Gran % Neutrophils % Lymphocytes % Monocytes % Eosinophils % Basophils % Nucleated RBC % Absolute Neutrophils Absolute Lymphocytes Absolute Monocytes Absolute Eosinophils Absolute Basophils RBC Morphology Hypochromasia Poikilocytosis PT INR APTT VBG Lactate Sodium Potassium Chloride Carbon Dioxide Anion Gap BUN Creatinine Est GFR (CKD-EPI 2020) Glucose Calcium Total Bilirubin Conjugated Bilirubin AST ALT Alkaline Phosphatase C-Reactive Protein Total Protein Albumin Lipase Procalcitonin 0.1 Urine Color Urine Clarity Urine pH Ur Specific [place] Urine Protein Urine Ketones Urine Blood Urine Nitrite Urine Bilirubin Urine Urobilinogen Ur Leukocyte Esterase Urine Glucose Urine Opiates Screen Urine Methadone Screen Ur Barbiturates Screen Ur Tricyclics Screen Ur Amphetamines Screen U Benzodiazepines Scrn Urine Cocaine Screen Ur THC Screen COVID-19 Source Nasal/Nares SARS-CoV-2 (PCR) Negative Patient ABO/Rh A Positive Antibody Screen NEGATIVE Crossmatch See Detail
--- NOTE | 2023-02-11 17:18 | MCONE_ITS ---
Date of service: 02/11/23 Time of Service: 17:18 Assessment and Plan Assessment and plan (1) Acute gangrenous cholecystitis: Status: Acute Assessment and plan: per Dr. Ruiz, there was no pus in the GB fossa. Blood cultures were obtained at admission and peritoneal fluid was sent for culture. Patient remains on Zosyn which should cover intra-abdominal organisms Pain control will be an issue given her daily use of street fentanyl as well as use of cocaine and any other analgesic she has been able to obtain. Patient placed on ketamine drip by anesthesia, dilaudid, toradol and tylenol ordered per surgery. Consider resuming her methadone in the morning (2) Sepsis: Status: Acute Assessment and plan: patient surprisingly came back from the OR not on any vasopressors. continue broad spectrum antibiotics w/ Zosyn as above (3) Protein-calorie malnutrition, mild: Status: Acute Assessment and plan: when able to take po, I would add protein supplements, consider nutritional co nsult. consider TPN if she is not able to begin po intake within couple days. (4) Anemia: Status: Chronic Assessment and plan: will plan workup, check B12, folate, iron studies (5) Thrombocytosis: Status: Acute Assessment and plan: likely reactive from sepsis/cholecystitis (6) Intravenous drug abuse, continuous: Status: Acute Assessment and plan: pain management will be problematic but helped by putting her on ketamine overnight (7) Homeless: Status: Acute Assessment and plan: CM to asssist w/ providing patient w/ contacts for assistance w/ housing, [facility] [employer] support services History of Present Illness History of Present Illness Chief Complaint: abdominal pain; acute cholecystitis Narrative: 42 yr old female w/ hx of IVDA, DM, type 2, who presented w/ RUQ abdominal pain which she has been dealing with for 3 months, controlling the pain w/ use of fentanyl but the pain had become worse lately to the point she could no longer control the pain. Evaluation in the ED included imaging with CT demonstrated gall stones w/ GB wall thickening and edema but no air in the GB wall. There is inflammation of the liver around the GB and there is fluid tracking in the portal vein but no free air and no biliary tract air. Patient was admitted to the surgical service w/ medicine consult for assistance w/ pain management, detoxification and treatment of sepsis. Patient had blood cultures obtained while in the ED and was started on Zosyn for antbiotics. Patient was admitted to the ICU and taken to surgery this afternoon for open cholecystectomy. Per Dr. Ruiz's report, the gall bladder could not be removed as it was petrified like a stone and could not be removed from the GB fossa and there was a lot of inflammation around it along the surface of the liver but there was no pus. Patient came back to the ICU w/ drain in place. Per anaesthesia she required a lot of analgesics and she is now goinig to be on a ketamine drip overnight. PFSH All Active Problems (Updated 02/11/23 @ 21:19 by Johanne Ruiz, DO) Protein-calorie malnutrition, mild (Acute) Homeless (Acute) Poor dentition (Acute) Abscess of left leg (Acute) Thrombocytosis (Acute) Anemia (Chronic) Leukocytosis (leucocytosis) (Acute) Tobacco use (Acute 08/29/15) Sepsis (Acute) Intravenous drug abuse, continuous (Acute) Acute gangrenous cholecystitis (Acute) Diarrhea (Active) Medical History Depression (~2002) situational. took meds x6mo. no PP depression. Diabetes mellitus, type 2 Class C. Onset 21yo. doesnt take meds or see MDs when not . Nl eye exam 08/2015. Obesity 08/2015 BMI 34. Tobacco use Surgical History Appendectomy Tonsillectomy and adenoidectomy Family History Mother Ulcerative colitis Social History Smoking/Tobacco Use Status: Current every day Tobacco Type: cigarettes Smoking risk assessment performed?: Yes Alcohol Intake: former Drug use: Never Substance use type: opiates Exam Const General: cooperative, disheveled and ill appearing chronically Nutritional Appearance: malnourished and underweight Orientation: alert, awake, oriented to person, oriented to place and oriented to time [facility] Head: normal to inspection Ears: hearing grossly normal bilaterally General nose exam: external nose normal Face and sinus: normal facial exam Mouth: moist mucous membranes Teeth and gingiva: poor dentition Neck Neck: normal visual inspection, full ROM, trachea midline and supple Thyroid: thyroid normal Carotids: normal carotid upstroke Chest Chest: normal inspection of the chest and normal palpation of entire chest wall Cardio Jugular venous pressure: no JVD Palpation: normal PMI Rate: regular rate Rhythm: regular rhythm Heart Sounds: S1 normal, S2 normal and no murmurs Pulses: normal peripheral pulses GI Inspection: incision (wide dressing over RUQ below costal margin c/w open larparotomy), scar (midline scar from below umbilicus to suprapubic) and other (drainage tubes on right upper quadrant w/ serosanguinous drainage) Palpation: tender Auscultation: absent bowel sounds Skin General skin exam: scars (multiple small needle track squires on arms, feet) and other (multiple tatoos over both arms and legs) Neuro General: patient alert, patient awake, patient oriented x3, moves all extremities, no focal motor deficits and CN's II-XI intact bilaterally Extrem General: normal to inspection, full ROM, capillary refill normal, no joint enlargement and no clubbing, cyanosis or edema Psych Appearance: disheveled Mental Status: mental status grossly normal Speech and Movement: speech and movement normal Affect: normal affect Attitude: cooperative Results Last Vital Signs Temp 37.3 C 02/11/23 13:12 Pulse 102 H 02/11/23 13:12 Resp 22 02/11/23 13:12 BP 106/81 02/11/23 13:12 Pulse Ox 96 02/11/23 12:55 Labs 02/11/23 09:15 02/11/23 06:50 Labs: Laboratory Results - last 24 hr 02/11/23 02/11/23 02/11/23 06:50 06:50 06:50 WBC RBC Hgb Hct MCV MCH MCHC RDW Plt Count MPV Immature Gran % Neutrophils % Lymphocytes % Monocytes % Eosinophils % Basophils % Nucleated RBC % Absolute Neutrophils Absolute Lymphocytes Absolute Monocytes Absolute Eosinophils Absolute Basophils RBC Morphology Hypochromasia Poikilocytosis PT INR APTT VBG Lactate 1.0 Sodium 136 Cancelled Potassium 3.3 L Cancelled Chloride 98 Cancelled Carbon Dioxide 30.8 Cancelled Anion Gap 7.2 Cancelled BUN 9 Cancelled Creatinine 0.8 Cancelled Est GFR (CKD-EPI 2020) 95.46 Cancelled Glucose 161 H Cancelled Calcium 8.8 Cancelled Total Bilirubin 1.0 Cancelled Conjugated Bilirubin 0.9 H AST 30 Cancelled ALT 39 Cancelled Alkaline Phosphatase 531 H Cancelled C-Reactive Protein Total Protein 8.8 H Cancelled Albumin 2.1 L Cancelled Lipase 69 Procalcitonin Urine Color Urine Clarity Urine pH Ur Specific [place] Urine Protein Urine Ketones Urine Blood Urine Nitrite Urine Bilirubin Urine Urobilinogen Ur Leukocyte Esterase Urine Glucose Urine Opiates Screen Urine Methadone Screen Ur Barbiturates Screen Ur Tricyclics Screen Ur Amphetamines Screen U Benzodiazepines Scrn Urine Cocaine Screen Ur THC Screen COVID-19 Source SARS-CoV-2 (PCR) Patient ABO/Rh Antibody Screen Crossmatch 02/11/23 02/11/23 02/11/23 06:50 06:50 08:13 WBC 18.32 H RBC 3.63 L Hgb 9.1 L Hct 28.4 L MCV 78 L MCH 25.1 L MCHC 32.0 RDW 18.7 H Plt Count 907 H* MPV 8.5 Immature Gran % 0.4 Neutrophils % 79.5 Lymphocytes % 12.0 Monocytes % 6.1 Eosinophils % 1.6 Basophils % 0.4 Nucleated RBC % 0.0 Absolute Neutrophils 14.56 H Absolute Lymphocytes 2.20 Absolute Monocytes 1.12 H Absolute Eosinophils 0.29 Absolute Basophils 0.07 RBC Morphology See Below Hypochromasia 1+ Poikilocytosis 2+ PT 10.1 INR 1.0 APTT 27.9 VBG Lactate Sodium Potassium Chloride Carbon Dioxide Anion Gap BUN Creatinine Est GFR (CKD-EPI 2020) Glucose Calcium Total Bilirubin Conjugated Bilirubin AST ALT Alkaline Phosphatase C-Reactive Protein Total Protein Albumin Lipase Procalcitonin Urine Color Yellow Urine Clarity Clear Urine pH 8.0 Ur Specific [place] 1.015 Urine Protein Negative Urine Ketones Trace H Urine Blood Negative Urine Nitrite Negative Urine Bilirubin Negative Urine Urobilinogen 1.0 H Ur Leukocyte Esterase Negative Urine Glucose Negative Urine Opiates Screen Urine Methadone Screen Ur Barbiturates Screen Ur Tricyclics Screen Ur Amphetamines Screen U Benzodiazepines Scrn Urine Cocaine Screen Ur THC Screen COVID-19 Source SARS-CoV-2 (PCR) Patient ABO/Rh Antibody Screen Crossmatch 02/11/23 02/11/23 02/11/23 08:13 09:15 09:15 WBC 19.71 H RBC 2.93 L Hgb 7.4 L Hct 23.3 L MCV 80 MCH 25.3 L MCHC 31.8 L RDW 18.8 H Plt Count 1062 H* MPV 9.0 Immature Gran % 0.5 Neutrophils % 79.1 Lymphocytes % 13.7 Monocytes % 4.7 Eosinophils % 1.5 Basophils % 0.5 Nucleated RBC % 0.0 Absolute Neutrophils 15.59 H Absolute Lymphocytes 2.70 Absolute Monocytes 0.93 H Absolute Eosinophils 0.30 Absolute Basophils 0.10 RBC Morphology See Below Hypochromasia 1+ Poikilocytosis PT INR APTT VBG Lactate Sodium Potassium Chloride Carbon Dioxide Anion Gap BUN Creatinine Est GFR (CKD-EPI 2020) Glucose Calcium Total Bilirubin Conjugated Bilirubin AST ALT Alkaline Phosphatase C-Reactive Protein 5.09 H Total Protein Albumin Lipase 58 Procalcitonin Urine Color Urine Clarity Urine pH Ur Specific [place] Urine Protein Urine Ketones Urine Blood Urine Nitrite Urine Bilirubin Urine Urobilinogen Ur Leukocyte Esterase Urine Glucose Urine Opiates Screen Positive A Urine Methadone Screen Negative Ur Barbiturates Screen Negative Ur Tricyclics Screen Negative Ur Amphetamines Screen Negative U Benzodiazepines Scrn Negative Urine Cocaine Screen Positive A Ur THC Screen Negative COVID-19 Source SARS-CoV-2 (PCR) Patient ABO/Rh Antibody Screen Crossmatch 02/11/23 02/11/23 02/11/23 09:15 10:25 10:35 WBC RBC Hgb Hct MCV MCH MCHC RDW Plt Count MPV Immature Gran % Neutrophils % Lymphocytes % Monocytes % Eosinophils % Basophils % Nucleated RBC % Absolute Neutrophils Absolute Lymphocytes Absolute Monocytes Absolute Eosinophils Absolute Basophils RBC Morphology Hypochromasia Poikilocytosis PT INR APTT VBG Lactate Sodium Potassium Chloride Carbon Dioxide Anion Gap BUN Creatinine Est GFR (CKD-EPI 2020) Glucose Calcium Total Bilirubin Conjugated Bilirubin AST ALT Alkaline Phosphatase C-Reactive Protein Total Protein Albumin Lipase Procalcitonin 0.1 Urine Color Urine Clarity Urine pH Ur Specific [place] Urine Protein Urine Ketones Urine Blood Urine Nitrite Urine Bilirubin Urine Urobilinogen Ur Leukocyte Esterase Urine Glucose Urine Opiates Screen Urine Methadone Screen Ur Barbiturates Screen Ur Tricyclics Screen Ur Amphetamines Screen U Benzodiazepines Scrn Urine Cocaine Screen Ur THC Screen COVID-19 Source Nasal/Nares SARS-CoV-2 (PCR) Negative Patient ABO/Rh A Positive Antibody Screen NEGATIVE Crossmatch See Detail
--- NOTE | 2023-02-11 17:25 | W.PM.PROGNOT ---
Date of Service Date of service: 02/11/23 Time of Service: 18:00 Assessment and Plan Assessment and plan (1) Leukocytosis (leucocytosis): Status: Acute Assessment and plan: acute infection zosyn (2) Anemia: Status: Chronic Assessment and plan: Appears to be microcytic and multifactorial. Poor diet and drug abuse contributing factors, As well as her infection (3) Thrombocytosis: Status: Acute Assessment and plan: appears reactive peripheral smear sent (4) Tobacco use: Status: Acute Assessment and plan: pulm toilet (5) Sepsis: Status: Acute Assessment and plan: pt BP was very stable through surgery. A line was not required. Pressers not required in ICU. (6) Intravenous drug abuse, continuous: Status: Acute Assessment and plan: dulce control is going to be ongoing problem for her I did d/w hospitalists, anethesia, pharmacy, and nursing Plan: ice tylenol- scheudled toradol- scheduled ketamine drip IV dilaudid prn IV ativan prn (7) Acute gangrenous cholecystitis: Status: Acute (8) Diarrhea: Status: Active (9) Abscess of left leg: Status: Acute Assessment and plan: not fluctuate. Should resolved w/ abx. (10) Poor dentition: Status: Acute (11) Homeless: Status: Acute Assessment and plan: care managment consulted post surgical care will be challenging (12) Protein-calorie malnutrition, mild: Status: Acute (13) Tobacco use: Subjective Subjective Interval history since last seen: pt received 4mg dilaudid and 4mg versed post extubation to transport to ICU. She is c/o pain. She is pulling at lines and tubes. soft restraints will be used to prevent inadvertent removal of lines/drains. d/w anesthesia and approve ketamine for pain control Dilaudid and ativan for pain continue Zosyn (started 02/11) The case was discussed with nursing and hospitalists. Patient's male ship surveyor that was with her in the ER is no longer present. She is not on any home medications. HEENT: no jaundice. no eye pain/drainage/redness/swelling. Minimal output from NG tube Cardio- NSR no chest pain, BP stable. Pulm: no sob or productive cough. no hemoptysis Incision- clean/dry. Dressing intact no excessive bleeding or drainage Urine is clear -Patient is currently resting comfortably. Continue current plans for pulmonary toilet, GI and DVT prophylaxis.. The wound care plan was reviewed with nursing as well. pt had a large amount of hard stool in the colon and will be addressed once NGT is out- hopefully in next 24-48hrs. Objective Last Vital Signs Temp 37.3 C 02/11/23 13:12 Pulse 79 02/11/23 17:16 Resp 22 02/11/23 17:20 BP 125/71 02/11/23 17:16 Pulse Ox 99 02/11/23 17:20 Laboratory Results - last 24 hr 02/11/23 02/11/23 02/11/23 06:50 06:50 06:50 WBC RBC Hgb Hct MCV MCH MCHC RDW Plt Count MPV Immature Gran % Neutrophils % Lymphocytes % Monocytes % Eosinophils % Basophils % Nucleated RBC % Absolute Neutrophils Absolute Lymphocytes Absolute Monocytes Absolute Eosinophils Absolute Basophils RBC Morphology Hypochromasia Poikilocytosis PT INR APTT VBG Lactate 1.0 Sodium 136 Cancelled Potassium 3.3 L Cancelled Chloride 98 Cancelled Carbon Dioxide 30.8 Cancelled Anion Gap 7.2 Cancelled BUN 9 Cancelled Creatinine 0.8 Cancelled Est GFR (CKD-EPI 2020) 95.46 Cancelled Glucose 161 H Cancelled Calcium 8.8 Cancelled Total Bilirubin 1.0 Cancelled Conjugated Bilirubin 0.9 H AST 30 Cancelled ALT 39 Cancelled Alkaline Phosphatase 531 H Cancelled C-Reactive Protein Total Protein 8.8 H Cancelled Albumin 2.1 L Cancelled Lipase 69 Procalcitonin Urine Color Urine Clarity Urine pH Ur Specific [place] Urine Protein Urine Ketones Urine Blood Urine Nitrite Urine Bilirubin Urine Urobilinogen Ur Leukocyte Esterase Urine Glucose Urine Opiates Screen Urine Methadone Screen Ur Barbiturates Screen Ur Tricyclics Screen Ur Amphetamines Screen U Benzodiazepines Scrn Urine Cocaine Screen Ur THC Screen COVID-19 Source SARS-CoV-2 (PCR) Patient ABO/Rh Antibody Screen Crossmatch 02/11/23 02/11/23 02/11/23 06:50 06:50 08:13 WBC 18.32 H RBC 3.63 L Hgb 9.1 L Hct 28.4 L MCV 78 L MCH 25.1 L MCHC 32.0 RDW 18.7 H Plt Count 907 H* MPV 8.5 Immature Gran % 0.4 Neutrophils % 79.5 Lymphocytes % 12.0 Monocytes % 6.1 Eosinophils % 1.6 Basophils % 0.4 Nucleated RBC % 0.0 Absolute Neutrophils 14.56 H Absolute Lymphocytes 2.20 Absolute Monocytes 1.12 H Absolute Eosinophils 0.29 Absolute Basophils 0.07 RBC Morphology See Below Hypochromasia 1+ Poikilocytosis 2+ PT 10.1 INR 1.0 APTT 27.9 VBG Lactate Sodium Potassium Chloride Carbon Dioxide Anion Gap BUN Creatinine Est GFR (CKD-EPI 2020) Glucose Calcium Total Bilirubin Conjugated Bilirubin AST ALT Alkaline Phosphatase C-Reactive Protein Total Protein Albumin Lipase Procalcitonin Urine Color Yellow Urine Clarity Clear Urine pH 8.0 Ur Specific [place] 1.015 Urine Protein Negative Urine Ketones Trace H Urine Blood Negative Urine Nitrite Negative Urine Bilirubin Negative Urine Urobilinogen 1.0 H Ur Leukocyte Esterase Negative Urine Glucose Negative Urine Opiates Screen Urine Methadone Screen Ur Barbiturates Screen Ur Tricyclics Screen Ur Amphetamines Screen U Benzodiazepines Scrn Urine Cocaine Screen Ur THC Screen COVID-19 Source SARS-CoV-2 (PCR) Patient ABO/Rh Antibody Screen Crossmatch 02/11/23 02/11/23 02/11/23 08:13 09:15 09:15 WBC 19.71 H RBC 2.93 L Hgb 7.4 L Hct 23.3 L MCV 80 MCH 25.3 L MCHC 31.8 L RDW 18.8 H Plt Count 1062 H* MPV 9.0 Immature Gran % 0.5 Neutrophils % 79.1 Lymphocytes % 13.7 Monocytes % 4.7 Eosinophils % 1.5 Basophils % 0.5 Nucleated RBC % 0.0 Absolute Neutrophils 15.59 H Absolute Lymphocytes 2.70 Absolute Monocytes 0.93 H Absolute Eosinophils 0.30 Absolute Basophils 0.10 RBC Morphology See Below Hypochromasia 1+ Poikilocytosis PT INR APTT VBG Lactate Sodium Potassium Chloride Carbon Dioxide Anion Gap BUN Creatinine Est GFR (CKD-EPI 2020) Glucose Calcium Total Bilirubin Conjugated Bilirubin AST ALT Alkaline Phosphatase C-Reactive Protein 5.09 H Total Protein Albumin Lipase 58 Procalcitonin Urine Color Urine Clarity Urine pH Ur Specific [place] Urine Protein Urine Ketones Urine Blood Urine Nitrite Urine Bilirubin Urine Urobilinogen Ur Leukocyte Esterase Urine Glucose Urine Opiates Screen Positive A Urine Methadone Screen Negative Ur Barbiturates Screen Negative Ur Tricyclics Screen Negative Ur Amphetamines Screen Negative U Benzodiazepines Scrn Negative Urine Cocaine Screen Positive A Ur THC Screen Negative COVID-19 Source SARS-CoV-2 (PCR) Patient ABO/Rh Antibody Screen Crossmatch 02/11/23 02/11/23 02/11/23 09:15 10:25 10:35 WBC RBC Hgb Hct MCV MCH MCHC RDW Plt Count MPV Immature Gran % Neutrophils % Lymphocytes % Monocytes % Eosinophils % Basophils % Nucleated RBC % Absolute Neutrophils Absolute Lymphocytes Absolute Monocytes Absolute Eosinophils Absolute Basophils RBC Morphology Hypochromasia Poikilocytosis PT INR APTT VBG Lactate Sodium Potassium Chloride Carbon Dioxide Anion Gap BUN Creatinine Est GFR (CKD-EPI 2020) Glucose Calcium Total Bilirubin Conjugated Bilirubin AST ALT Alkaline Phosphatase C-Reactive Protein Total Protein Albumin Lipase Procalcitonin 0.1 Urine Color Urine Clarity Urine pH Ur Specific [place] Urine Protein Urine Ketones Urine Blood Urine Nitrite Urine Bilirubin Urine Urobilinogen Ur Leukocyte Esterase Urine Glucose Urine Opiates Screen Urine Methadone Screen Ur Barbiturates Screen Ur Tricyclics Screen Ur Amphetamines Screen U Benzodiazepines Scrn Urine Cocaine Screen Ur THC Screen COVID-19 Source Nasal/Nares SARS-CoV-2 (PCR) Negative Patient ABO/Rh A Positive Antibody Screen NEGATIVE Crossmatch See Detail Time Spent with Patient Time Spent with Patient: 35-49 minutes Time was spent: preparing to see the patient(eg.review tests), obtaining and/or reviewing separately otained hiistory, ordering medications,tests, procedures, referring, communicating with other health emergency care attendant, indepentently interpreting results, counseling the patient and care coordination
--- NOTE | 2023-02-11 17:27 | W.ANESNERVE ---
Nerve Block Single Injection Procedure Date and Time Date Performed: 02/11/23 Procedure Start: 16:40 Location Where Procedure Performed Procedure Location: Operating Room Procedure Stop: 16:52 Reason Performed: Postoperative Analgesia Requesting Provider: Johanne Ruiz Timeout Performed Timeout Performed: Yes Monitoring Used ECG, Blood Pressure, SpO2 and ETCO2 Sterility Sterility: Hand Hygiene, Surgical Cap, Surgical Mask, Sterile Gloves and Chlorhexidine Sedation Given During Procedure Sedation Given (Indicate Dose Given): No Sedation given Patient Mental Status Patient Mental Status: Performed under general anesthesia Nerve Block 1st Nerve Block: Laterality: Bilateral Block Type: Erector Spinae (Upper) Ultrasound Image Saved?: Yes Needle / Catheter Used: 100mm SonoPlex II Local Anesthetic Bolus (Indicate Dose Given): Bupivacaine 0.375% Dose:: 30 mL Additives (Indicate Dose Given): Epinephrine to make 1:200,000 (5mcg/ml) Dose:: 200 mcg, Decadron Dose:: 4 mg and Precedex Dose:: 40 mcg Ultrasound: Sterile probe cover and gel used Nerve Stimulator: Not Used Paresthesia: None Procedure Tolerated: No Complications Procedure Outcome: Successful Procedure Comment: 20 mL on the right, 10 mL on the left. Performed By: Skip Paniagua
--- NOTE | 2023-02-11 17:32 | W.ANESPOSTOP ---
Postoperative Evaluation Date, Time and Location Date Performed: 02/11/23 Time Performed: 17:32 Patient Location: Intensive Care Unit Vital Signs Most Recent Imported Vital Signs: Most Recent Vital Signs Temp Pulse Resp BP Pulse Ox 37.3 C 79 22 125/71 99 02/11/23 13:12 02/11/23 17:16 02/11/23 17:20 02/11/23 17:16 02/11/23 17:20 Pain Score Most Recent Pain Score: Most Recent Pain Score Pain Level 9 02/11/23 13:19 Assessment Mental Status: Arousable with meaningful communication Airway and Respiratory Function: Patent airway with normal (patient baseline) respiratory exam Cardiovascular Function: Hemodynamically Stable Hydration Status: Adequately Hydrated Nausea & Vomiting: No Nausea or Vomiting Pain: Pain is Moderate or Severe (ketamine gtt requested/ordered by surgeon. Nerve block hopefuly will become more dense. ) Postoperative Pain Management: Pain being addressed with medication Peripheral Nerve Block: Regional nerve block not resolved at time of post operative discharge
[2023-02-11 17:45] LABS: Abs Immature Grans 0.23 10^3/uL (0.0-0.06); HCT 35.4 % (36.0-46.0); HGB 11.3 g/dL (11.2-15.7); MCH 25.7 pg (27.0-33.0); MCHC 31.9 % (32.0-36.0); MCV 81 fL (80-95); MPV 8.7 fL (8.0-11.0); RBC 4.39 10^6/uL (3.93-5.22); RDW 18.8 % (11.7-14.6); RDW-SD 55.1 fL
[2023-02-11 17:47] LABS: Absolute Monocyte Count 0.94 10^3/uL (0.1-0.8)
[2023-02-11 17:48] LABS: Anion Gap 9.6 mmol/L (3-11); BUN 8 mg/dL (7-18); CO2 24.4 mmol/L (21.0-32.0); CREATININE 0.6 mg/dL (0.55-1.02); Calcium 8.2 mg/dL (8.5-10.1); Chloride 101 mmol/L (98-107); Glucose 199 mg/dL (74-106); Magnesium 2.5 mg/dL (1.8-2.4); Potassium 3.7 mmol/L (3.5-5.1); Sodium 135 mmol/L (136-145)
[2023-02-11 17:54] LABS: WBC 31.48 10^3/uL (4.4-10.8)
[2023-02-11 17:55] LABS: Platelet Count 883 10^3/uL (130-400)
[2023-02-11 18:04] LABS: Absolute Lymphocyte Count 0.94 10^3/uL (1.2-3.4); Absolute Neutrophil Count 28.96 10^3/uL (1.2-6.7); Bands % 6; Metamyelocytes % 1; Myelocytes % 1
[2023-02-11 18:05] LABS: Anisocytosis 1+; Diff Comment Manual Differential
[2023-02-11] MEDS: Famotidine 20 MG/2 ML VIAL IVP (18:14)
--- NOTE | 2023-02-11 18:56 | DI.VRAD_ITS ---
PROCEDURE INFORMATION: Exam: XR Chest Exam date and time: 02/11/2023 6:36 PM Age: 42 years old Clinical indication: Other: Line placement TECHNIQUE: Imaging protocol: Radiologic exam of the chest. Views: 1 view. COMPARISON: None. FINDINGS: Tubes, catheters and devices: There is a nasogastric tube in place with its distal tip at the lateral aspect of the left upper quadrant of the abdomen, likely residing within the lateral aspect of the gastric fundus. There is a right subclavian central line place with its distal tip within the upper right atrium, approximately 2 cm inferior to the superior cavoatrial junction. Lungs: The lungs are clear. There is no pulmonary vascular congestion. Pleural spaces: There are no pleural effusions present. There is no evidence of pneumothorax. Heart/Mediastinum: The cardiomediastinal silhouette is within normal limits. Bones/joints: Unremarkable. IMPRESSION: 1. Right subclavian line in place with its distal tip within the upper right atrium, as described above. 2. No pneumothorax identified. 3. Nasogastric tube in place with tip projecting at the lateral gastric fundus. 4. No active cardiopulmonary disease identified. Dictated and Authenticated by: Joe Kaminski MD. Ordering:JOON Valdivia MD
[2023-02-11] MEDS: LORazepam 2 MG/ML VIAL IVP (19:33)
[2023-02-11] MEDS: HYDROmorphone 2 MG/ML SYR IVP (19:33)
[2023-02-11] MEDS: Normal Saline Flush 10 ML SYR IVP (19:34)
[2023-02-11] MEDS: DEXTROSE 5%-0.45% SALINE 1,000 ML 100 ML IV (19:37)
--- NOTE | 2023-02-11 20:28 | NUR.NOTE ---
Nursing Note:Lab calls to clarify when/where last unit of blood completed. Confirmed w\pts RN and reported to lab that the unit finished in the OR. OR notes reviewed and unable to find any documentation on the time the unit completed.
[2023-02-12] VITALS (143 sets, daily range): BP systolic 90–166; BP diastolic 70–98; PULSE 67–98; RESP 3–29; TEMP 37.3–37.9; O2SAT 95–100
[2023-02-12] MEDS: LORazepam 2 MG/ML VIAL IVP ×3 (00:02→07:40)
[2023-02-12] MEDS: HYDROmorphone 2 MG/ML SYR IVP ×7 (00:03→23:03)
[2023-02-12] MEDS: Normal Saline Flush 10 ML SYR IVP ×8 (03:31→23:04)
[2023-02-12] MEDS: DEXTROSE 5%-0.45% SALINE 1,000 ML 100 ML IV (05:39)
[2023-02-12] MEDS: Famotidine 20 MG/2 ML VIAL IVP ×2 (05:39→18:37)
[2023-02-12] MEDS: Ketorolac 15 MG/ML VIAL IVP ×4 (05:39→23:03)
[2023-02-12] MEDS: ACETAMINOPHEN 1,000 MG/100 ML BTL 400 MG IVPB ×4 (05:43→23:03)
[2023-02-12] MEDS: PIPERACILLIN/TAZO 3.375 GM in Normal Saline 50 ML IVPB ×3 (06:07→21:30)
[2023-02-12 06:16] LABS: ALT 30 U/L (14-59); AST 24 U/L (15-37); Albumin 1.7 g/dL (3.4-5.0); Alkaline Phosphatase 378 U/L (46-116); Anion Gap 6.4 mmol/L (3-11); BUN 8 mg/dL (7-18); Bilirubin, Total 0.9 mg/dL (0.2-1.0); C-Reactive Protein 7.81 mg/dL (0.0-0.3); CO2 27.6 mmol/L (21.0-32.0); CREATININE 0.8 mg/dL (0.55-1.02); Calcium 7.9 mg/dL (8.5-10.1); Chloride 105 mmol/L (98-107); Estimated GFR 95.46 (mL/min/1.73m2); Glucose 242 mg/dL (74-106); Sodium 139 mmol/L (136-145); Total Protein 7.5 g/dL (6.4-8.2)
[2023-02-12 06:24] LABS: Lipase 24 U/L (16-77); Magnesium 2.4 mg/dL (1.8-2.4); TSH 0.45 uIU/mL (0.36-3.74)
[2023-02-12 06:40] LABS: Abs Immature Grans 0.11 10^3/uL (0.0-0.06); Basophils % 0.2; Folate 7.3 ng/mL (8.6-20.0); HCT 33.8 % (36.0-46.0); Immature Grans % 0.5; Lymphocytes % 8.6; MCH 25.9 pg (27.0-33.0); MCHC 32.5 % (32.0-36.0); MCV 80 fL (80-95); Monocytes % 6.2; Neutrophils % 84.5; RBC 4.25 10^6/uL (3.93-5.22); RDW 18.6 % (11.7-14.6); RDW-SD 53.5 fL; Vitamin B12 394 pg/mL (193-986); WBC 21.75 10^3/uL (4.4-10.8)
[2023-02-12 06:41] LABS: Absolute Basophil Count 0.04 10^3/uL (0.0-0.2); Absolute Lymphocyte Count 1.87 10^3/uL (1.2-3.4); Absolute Monocyte Count 1.35 10^3/uL (0.1-0.8); Absolute Neutrophil Count 18.38 10^3/uL (1.2-6.7)
[2023-02-12 06:43] LABS: Platelet Count 908 10^3/uL (130-400)
[2023-02-12 07:04] LABS: Ferritin 230 ng/mL (8-252)
[2023-02-12] MEDS: Enoxaparin 40 MG/0.4 ML SYR SC (07:39)
--- NOTE | 2023-02-12 09:31 | W.PM.PROGNOT ---
Date of Service Date of service: 02/12/23 Time of Service: 09:31 Assessment and Plan Assessment and plan (1) Acute gangrenous cholecystitis: Status: Acute Assessment and plan: continue Zosyn, check results of blood and peritoneal fluid cultures. Dr. Ruiz has indicated that she will consult w/ surgeons at [facility] to discuss optimal treatment/surgery. Critical care time spent interviewing and examining the patient, reviewing studies, discussing case with patient's nurse and consulting physicians was 35 minutes (2) Sepsis: Status: Acute Assessment and plan: as above. She has not required vasopressors and she remains hemodynamically stable. Once she is off the ketamine drip, she could potentially move to med/surg (3) Diabetes mellitus, type 2: Assessment and plan: patient reported has been diabetic but she has not been under the care of a physician for this for years. Her last glycohemoglobin A1c in our system is 6.6% from 07/02/15. Her glucose this morning is 242. I have added glucose fingerstick checks q6hr w/ low dose novolog sliding scale for coverage. I also ordered an updated glycohemoglobin A1c. Once she has been on novolog for 24 to 48 hr, and have an idea of her insulin needs, then I will add some basal insulin coverage. She also is on D51/2NS @ 100 mL/hr which contributes to her glucose readings. If she goes on TPN then her glucose readings will really increase and her insulin needs will also increase. (4) Protein-calorie malnutrition, mild: Status: Acute Assessment and plan: when able to take po, I would add protein supplements, consider nutritional consult. consider TPN if she is not able to begin po intake within couple days. (5) Anemia: Status: Chronic Assessment and plan: she has normocytic anemia but w/ elevated RDW, her iron studies are pending; folate is low. I have consulted w/ pharmacist on providing parenteral forms of folate, she probably could benefit from a banana bag for iv hydration which would provide her w/ much needed MVS, magensium and folate and thiamine. (6) Thrombocytosis: Status: Acute Assessment and plan: likely reactive from sepsis/cholecystitis (7) Intravenous drug abuse, continuous: Status: Acute (8) Homeless: Status: Acute Assessment and plan: CM to asssist w/ providing patient w/ contacts for assistance w/ housing, community support services (9) DVT prophylaxis: Status: Acute Assessment and plan: enoxaparin 40 mg SC daily Subjective Subjective Interval history since last seen: Patient kept on ketamine drip overnight but has awakened enough that she has indicated increase in her pain over her abdomen. Patient has been medicated w/ ativan and dilaudid. Exam Narrative Exam Narrative: Mabel is drowsy but restless, her ketamine drip was put on hold by her nursing after she was medicated w/ ativan 2 mg and dilaudid 2 mg and then became rather somnolent. She is now more arouseable but still drowsy LUngs: clear Heart: RRR no murmur or rub Abdomen: she has two ANDRADE drains (per nursing left ANDRADE drained 70 mL last night and 40 mL so far this morning; right ANDRADE has drained 30 mL this morining and has some purulence; I asked nursing to send this for culture) Absent of bowel sounds, soft, diffuse tenderness w/ palpation Extremities: no edema or cyanosis; normal capillary refill; the left lower leg lesion is macular and dry and appears to be a scar rather than abscess Neuro: she is drowsy but arouseable and moves all 4 voluntarily pulling the covers over her. Objective Last Vital Signs Temp 37.9 C H 02/12/23 09:28 Pulse 74 02/12/23 09:01 Resp 18 02/12/23 09:01 BP 141/83 H 02/12/23 09:01 Pulse Ox 98 02/12/23 09:01 Laboratory Results - last 24 hr 02/11/23 02/11/23 02/11/23 09:15 09:15 09:15 WBC 19.71 H RBC 2.93 L Hgb 7.4 L Hct 23.3 L MCV 80 MCH 25.3 L MCHC 31.8 L RDW 18.8 H Plt Count 1062 H* MPV 9.0 Immature Gran % 0.5 Neutrophils % 79.1 Band Neutrophils % Lymphocytes % 13.7 Monocytes % 4.7 Eosinophils % 1.5 Basophils % 0.5 Metamyelocytes % Myelocytes % Nucleated RBC % 0.0 Absolute Neutrophils 15.59 H Absolute Lymphocytes 2.70 Absolute Monocytes 0.93 H Absolute Eosinophils 0.30 Absolute Basophils 0.10 RBC Morphology See Below Hypochromasia 1+ Anisocytosis Sodium Potassium Chloride Carbon Dioxide Anion Gap BUN Creatinine Est GFR (CKD-EPI 2020) Glucose Calcium Magnesium Ferritin Total Bilirubin AST ALT Alkaline Phosphatase C-Reactive Protein 5.09 H Total Protein Albumin Lipase 58 Vitamin B12 Folate Procalcitonin 0.1 TSH COVID-19 Source SARS-CoV-2 (PCR) Pathology Consult Spec Patient ABO/Rh Antibody Screen Crossmatch 02/11/23 02/11/23 02/11/23 10:25 10:35 17:21 WBC RBC Hgb Hct MCV MCH MCHC RDW Plt Count MPV Immature Gran % Neutrophils % Band Neutrophils % Lymphocytes % Monocytes % Eosinophils % Basophils % Metamyelocytes % Myelocytes % Nucleated RBC % Absolute Neutrophils Absolute Lymphocytes Absolute Monocytes Absolute Eosinophils Absolute Basophils RBC Morphology Hypochromasia Anisocytosis Sodium 135 L Potassium 3.7 Chloride 101 Carbon Dioxide 24.4 Anion Gap 9.6 BUN 8 Creatinine 0.6 Est GFR (CKD-EPI 2020) 116.30 Glucose 199 H Calcium 8.2 L Magnesium 2.5 H Ferritin Total Bilirubin AST ALT Alkaline Phosphatase C-Reactive Protein Total Protein Albumin Lipase Vitamin B12 Folate Procalcitonin TSH COVID-19 Source Nasal/Nares SARS-CoV-2 (PCR) Negative Pathology Consult Spec Patient ABO/Rh A Positive Antibody Screen NEGATIVE Crossmatch See Detail 02/11/23 02/12/23 02/12/23 17:21 05:30 05:30 WBC 31.48 H* RBC 4.39 Hgb 11.3 D Hct 35.4 L MCV 81 MCH 25.7 L MCHC 31.9 L RDW 18.8 H Plt Count 883 H* MPV 8.7 Immature Gran % See Differential Neutrophils % 86.0 Band Neutrophils % 6 Lymphocytes % 3.0 Monocytes % 3.0 Eosinophils % 0.0 Basophils % 0.0 Metamyelocytes % 1 Myelocytes % 1 Nucleated RBC % 0.0 Absolute Neutrophils 28.96 H Absolute Lymphocytes 0.94 L Absolute Monocytes 0.94 H Absolute Eosinophils 0.00 Absolute Basophils 0.00 RBC Morphology See Below Hypochromasia Anisocytosis 1+ Sodium 139 Potassium 4.0 Chloride 105 Carbon Dioxide 27.6 Anion Gap 6.4 BUN 8 Creatinine 0.8 Est GFR (CKD-EPI 2020) 95.46 Glucose 242 H Calcium 7.9 L Magnesium Ferritin Total Bilirubin 0.9 AST 24 ALT 30 Alkaline Phosphatase 378 H C-Reactive Protein 7.81 H Total Protein 7.5 Albumin 1.7 L Lipase Vitamin B12 Folate Procalcitonin TSH COVID-19 Source SARS-CoV-2 (PCR) Pathology Consult Spec Cancelled Patient ABO/Rh Antibody Screen Crossmatch 02/12/23 02/12/23 02/12/23 05:30 05:30 05:30 WBC 21.75 H RBC 4.25 Hgb 11.0 L Hct 33.8 L MCV 80 MCH 25.9 L MCHC 32.5 RDW 18.6 H Plt Count 908 H* MPV 9.0 Immature Gran % 0.5 Neutrophils % 84.5 Band Neutrophils % Lymphocytes % 8.6 Monocytes % 6.2 Eosinophils % 0.0 Basophils % 0.2 Metamyelocytes % Myelocytes % Nucleated RBC % 0.0 Absolute Neutrophils 18.38 H Absolute Lymphocytes 1.87 Absolute Monocytes 1.35 H Absolute Eosinophils 0.00 Absolute Basophils 0.04 RBC Morphology Hypochromasia Anisocytosis Sodium Potassium Chloride Carbon Dioxide Anion Gap BUN Creatinine Est GFR (CKD-EPI 2020) Glucose Calcium Magnesium 2.4 Ferritin 230 Total Bilirubin AST ALT Alkaline Phosphatase C-Reactive Protein Total Protein Albumin Lipase 24 Vitamin B12 394 Folate 7.3 L Procalcitonin TSH 0.45 COVID-19 Source SARS-CoV-2 (PCR) Pathology Consult Spec Patient ABO/Rh Antibody Screen Crossmatch Time Spent with Patient Time Spent with Patient: 25-34 minutes Time was spent: preparing to see the patient(eg.review tests), ordering medications,tests, procedures, referring, communicating with other health care transition mgr, indepentently interpreting results and care coordination
[2023-02-12 10:14] LABS: Reticulocyte 1.9 % (0.5-2.4)
[2023-02-12 10:18] LABS: Iron 15 ug/dL (50-170); Total Iron Binding Capacity 155 ug/dL (250-450); Transferrin Sat 10 % (15-50)
[2023-02-12 10:43] LABS: Hemoglobin A1C 5.6 % (<5.7)
--- NOTE | 2023-02-12 10:49 | INITIAL_ITS ---
- If Service Date Differs Date of service: 02/12/23 Time of Service: 10:49 Care Management Initial Assess REASON FOR HOSPITALIZATION:: Acute cholecystitis PAST MEDICAL HISTORY/PAST SURGICAL HISTORY:: All Active Problems. Tobacco use (Acute 08/29/15). Sepsis (Acute). Intravenous drug abuse, continuous (Acute). Acute gangrenous cholecystitis (Acute). Diarrhea (Active). Medical History. Depression (~2002). situational. took meds x6mo. no PP depression. Diabetes mellitus, type 2. Class C. Onset 21yo. doesnt take meds or see MDs when not . Nl eye exam 08/2015. Obesity. 08/2015 BMI 34. Tobacco use. Surgical History. Appendectomy. Tonsillectomy and adenoidectomy PREVIOUS FUNCTIONAL STATUS/SOCIAL/FAMILY SUPPORTS:: Per report, Mabel is currently homeless in [facility]. She is independent at baseline in the community. CURRENT FUNCTIONAL STATUS:: Mabel was unable to communicate with CM during a visit this afternoon. She is currently on a ketamine drip and IV antibiotics after having an open surgery that was an attempt to remove her gallbladder, which was unsuccessful due to intense inflammation. Cultures are pending, and she is being closely monitored at ICU level of care. CM will continue to follow. ADVANCE DIRECTIVES:: Not on file. CM will offer forms. Has patient been provided with info about the portal/API?: Yes Did the patient sign up for the portal?: No CODE STATUS:: Full Code INSURANCE COVERAGE / FINANCIAL ISSUES:: LISSY CURRENT HOME/COMMUNITY SERVICES/EQUIPMENT:: None PRIMARY CARE PHYSICIAN:: no local PCP, CM will set up follow up appointment with telecommunications engineer provider at time of admission- Jose watt [place]. POTENTIAL DISCHARGE NEEDS:: Possible transfer (MD contacting [facility] for recommendation), follow up appointments. PATIENT/FAMILY EDUCATION NEEDS:: Review discharge instructions and limitations, discussion of self care needs including ask me three. ANTICIPATED BARRIERS TO DISCHARGE:: Mabel is homeless and may have complex medical needs post hospitalization. TRANSPORTATION:: To be determined by disposition. PLAN:: Per report, is contacting [facility] for further management recommendations. Mabel is currently being closely monitored in the ICU. She will follow up with an telecommunications engineer provider post hospitalization. Her potential complex medical needs post discharge are complicated by her housing status. CM will provide resources within the community to support her discharge plan. CM will continue to follow.
--- NOTE | 2023-02-12 11:32 | W.PM.PROGNOT ---
Date of Service Date of service: 02/12/23 Time of Service: 11:32 Assessment and Plan Assessment and plan (1) Protein-calorie malnutrition, mild: Status: Acute Assessment and plan: pod#! sx 02/12 [email or web address] [email or web address]#[id number] Status post exploratory laparotomy patient had such an extensive Inflammatory response that I was unable to dissect the gallbladder out. There was soaonification noted of surrounding fatty structures, which is highly suspect for a recent episode of pancreatitis from passing a gallstone.. Even though this was not noted by labs for CT scan. But this would account for the intense inflammation and changes in the tissue. This point patient is improving with antibiotics and conservative care. Hopefully we can keep the NG tube in place. If she does pull it out I would just advise nursing to leave it out Currently her pain is adequately controlled on ketamine. Unfortunately there is a ketamine shortage and we only have enough left for the next 24 hours. We will continue w/ ketamine and than consider versed drip vs other. -d/w pt post Op care w/ CM. will attempt to get emergency housing and back on methadone program. -also d/w hospiotalists -cont medical care -fluids/Electrolytes adjusted (2) Homeless: Status: Acute (3) Poor dentition: Status: Acute (4) Abscess of left leg: Status: Acute (5) Thrombocytosis: Status: Acute (6) Anemia: Status: Chronic (7) Leukocytosis (leucocytosis): Status: Acute (8) Tobacco use: Status: Acute (9) Sepsis: (10) Intravenous drug abuse, continuous: Status: Acute (11) Acute gangrenous cholecystitis: Status: Acute (12) Diarrhea: Status: Active (13) Tobacco use: (14) Anemia, iron deficiency, inadequate dietary intake: Status: Acute (15) Folate deficiency anemia: Status: Acute Subjective Subjective Interval history since last seen: At this time patient is not really awake and alert enough to answer questions. History is taken from nursing. She has not been running any temps this afternoon. She was able to get up and void-patient insisted that Yee be removed due to discomfort yesterday. She has actually had minimal out through the NG tube. Only 300 cc. She does not have good bowel sounds. She has been pretty sedate for most of the afternoon. She has not been awake enough to do incentive spirometry. She did get up on out of bed to the chair but only for a few minutes. Exam HENMT Other: Very poor dentition. No jaundice Patient is not complaining of eye pain. Patient complains of the NG tube. See nursing flowsheet for output Chest Other: Multiple Multiple excoriations. Line site is clean dry and intact in the right IJ. Resp Effort & Inspection: normal respiratory effort Auscultation: clear to auscultation bilaterally Cardio Rate: regular rate Rhythm: regular rhythm GI Palpation: soft Auscultation: absent bowel sounds Other: Dressing is clean dry and intact with no strikethrough Serosanguineous coming from ANDRADE drain Extrem Other: Multiple excoriations and track squires from IVDA Abscess left leg is resolving Muscle wasting No edema Objective Last Vital Signs Temp 37.4 C 02/12/23 11:17 Pulse 73 02/12/23 11:01 Resp 20 02/12/23 11:01 BP 149/91 H 02/12/23 11:01 Pulse Ox 100 02/12/23 10:31 Laboratory Results - last 24 hr 02/11/23 02/11/23 02/11/23 10:25 10:35 17:21 WBC RBC Hgb Hct MCV MCH MCHC RDW Plt Count MPV Reticulocyte % (Auto) Immature Gran % Neutrophils % Band Neutrophils % Lymphocytes % Monocytes % Eosinophils % Basophils % Metamyelocytes % Myelocytes % Nucleated RBC % Absolute Neutrophils Absolute Lymphocytes Absolute Monocytes Absolute Eosinophils Absolute Basophils RBC Morphology Anisocytosis Sodium 135 L Potassium 3.7 Chloride 101 Carbon Dioxide 24.4 Anion Gap 9.6 BUN 8 Creatinine 0.6 Est GFR (CKD-EPI 2020) 116.30 Glucose 199 H Hemoglobin A1c Calcium 8.2 L Magnesium 2.5 H Iron TIBC Transferrin % Sat Ferritin Total Bilirubin AST ALT Alkaline Phosphatase C-Reactive Protein Total Protein Albumin Lipase Vitamin B12 Folate TSH SARS-CoV-2 (PCR) Negative Pathology Consult Spec Add-On Test Request Patient ABO/Rh A Positive Antibody Screen NEGATIVE Crossmatch See Detail 02/11/23 02/12/23 02/12/23 17:21 05:30 05:30 WBC 31.48 H* RBC 4.39 Hgb 11.3 D Hct 35.4 L MCV 81 MCH 25.7 L MCHC 31.9 L RDW 18.8 H Plt Count 883 H* MPV 8.7 Reticulocyte % (Auto) Immature Gran % See Differential Neutrophils % 86.0 Band Neutrophils % 6 Lymphocytes % 3.0 Monocytes % 3.0 Eosinophils % 0.0 Basophils % 0.0 Metamyelocytes % 1 Myelocytes % 1 Nucleated RBC % 0.0 Absolute Neutrophils 28.96 H Absolute Lymphocytes 0.94 L Absolute Monocytes 0.94 H Absolute Eosinophils 0.00 Absolute Basophils 0.00 RBC Morphology See Below Anisocytosis 1+ Sodium 139 Potassium 4.0 Chloride 105 Carbon Dioxide 27.6 Anion Gap 6.4 BUN 8 Creatinine 0.8 Est GFR (CKD-EPI 2020) 95.46 Glucose 242 H Hemoglobin A1c Calcium 7.9 L Magnesium Iron TIBC Transferrin % Sat Ferritin Total Bilirubin 0.9 AST 24 ALT 30 Alkaline Phosphatase 378 H C-Reactive Protein 7.81 H Total Protein 7.5 Albumin 1.7 L Lipase Vitamin B12 Folate TSH SARS-CoV-2 (PCR) Pathology Consult Spec Cancelled Add-On Test Request Patient ABO/Rh Antibody Screen Crossmatch 02/12/23 02/12/23 02/12/23 05:30 05:30 05:30 WBC 21.75 H RBC 4.25 Hgb 11.0 L Hct 33.8 L MCV 80 MCH 25.9 L MCHC 32.5 RDW 18.6 H Plt Count 908 H* MPV 9.0 Reticulocyte % (Auto) Immature Gran % 0.5 Neutrophils % 84.5 Band Neutrophils % Lymphocytes % 8.6 Monocytes % 6.2 Eosinophils % 0.0 Basophils % 0.2 Metamyelocytes % Myelocytes % Nucleated RBC % 0.0 Absolute Neutrophils 18.38 H Absolute Lymphocytes 1.87 Absolute Monocytes 1.35 H Absolute Eosinophils 0.00 Absolute Basophils 0.04 RBC Morphology Anisocytosis Sodium Potassium Chloride Carbon Dioxide Anion Gap BUN Creatinine Est GFR (CKD-EPI 2020) Glucose Hemoglobin A1c Calcium Magnesium 2.4 Iron TIBC Transferrin % Sat Ferritin 230 Total Bilirubin AST ALT Alkaline Phosphatase C-Reactive Protein Total Protein Albumin Lipase 24 Vitamin B12 394 Folate 7.3 L TSH 0.45 SARS-CoV-2 (PCR) Pathology Consult Spec Add-On Test Request Patient ABO/Rh Antibody Screen Crossmatch 02/12/23 02/12/23 02/12/23 05:30 05:30 05:30 WBC RBC Hgb Hct MCV MCH MCHC RDW Plt Count MPV Reticulocyte % (Auto) 1.9 Immature Gran % Neutrophils % Band Neutrophils % Lymphocytes % Monocytes % Eosinophils % Basophils % Metamyelocytes % Myelocytes % Nucleated RBC % Absolute Neutrophils Absolute Lymphocytes Absolute Monocytes Absolute Eosinophils Absolute Basophils RBC Morphology Anisocytosis Sodium Potassium Chloride Carbon Dioxide Anion Gap BUN Creatinine Est GFR (CKD-EPI 2020) Glucose Hemoglobin A1c 5.6 Calcium Magnesium Iron 15 L TIBC 155 L Transferrin % Sat 10 L Ferritin Total Bilirubin AST ALT Alkaline Phosphatase C-Reactive Protein Total Protein Albumin Lipase Vitamin B12 Folate TSH SARS-CoV-2 (PCR) Pathology Consult Spec Add-On Test Request Patient ABO/Rh Antibody Screen Crossmatch 02/12/23 Unknown WBC RBC Hgb Hct MCV MCH MCHC RDW Plt Count MPV Reticulocyte % (Auto) Immature Gran % Neutrophils % Band Neutrophils % Lymphocytes % Monocytes % Eosinophils % Basophils % Metamyelocytes % Myelocytes % Nucleated RBC % Absolute Neutrophils Absolute Lymphocytes Absolute Monocytes Absolute Eosinophils Absolute Basophils RBC Morphology Anisocytosis Sodium Potassium Chloride Carbon Dioxide Anion Gap BUN Creatinine Est GFR (CKD-EPI 2020) Glucose Hemoglobin A1c Calcium Magnesium Iron TIBC Transferrin % Sat Ferritin Total Bilirubin AST ALT Alkaline Phosphatase C-Reactive Protein Total Protein Albumin Lipase Vitamin B12 Folate TSH SARS-CoV-2 (PCR) Pathology Consult Spec Add-On Test Request Cancelled Patient ABO/Rh Antibody Screen Crossmatch Time Spent with Patient Time Spent with Patient: >50 minutes Time was spent: preparing to see the patient(eg.review tests), obtaining and/or reviewing separately otained hiistory, ordering medications,tests, procedures, referring, communicating with other health critical care unit nurse, indepentently interpreting results, counseling the patient, care coordination and other (d/w w/ RN/pharma/senior it business analyst)
--- NOTE | 2023-02-12 11:36 | PDOC.ANES ---
Date of service: 02/12/23 Time of Service: 11:43 Anesthesia Note Report Anesthesia Note: Daily Ketamine infusion note. Patient seen at bedside, still restless, however, VS appear stable excepting new onset/increasing temperatures. In inital phone call, prior to heading to bedside, I did ask the RN to call Dr. Ruiz to relay the patients increasing temperature, which the RN did do. Patient reports she does not have questions, just that she is tired and is hurting. She wants to sleep some more. Currently ketamine infusion is at 0.4. RN asked about max dosing and what concerns she should have or be looking out for. Discussed potential increase if necessary with RN and that should not be afraid of using adjuncts, such as the patient ativan PRN. Did caution for oversedation and did reinforce that I and my partners are available at all times if any further questions or concerns arise.
[2023-02-12] MEDS: POTASSIUM CHLORIDE/0.45% NACL 1,000 ML 100 MEQ IV ×2 (11:45→21:48)
[2023-02-12] MEDS: IRON SUCROSE COMPLEX 200 MG in Normal Saline 100 ML 400 MG IVPB (11:46)
[2023-02-12 11:51] LABS: HIV-1/2 Ag & Ab Screen Negative (Negative)
[2023-02-12] MEDS: Ondansetron 4 MG/2 ML VIAL IVP (20:19)
[2023-02-13] VITALS (141 sets, daily range): BP systolic 129–163; BP diastolic 76–98; PULSE 65–102; RESP 9–27; TEMP 36.4–37.4; O2SAT 94–100
[2023-02-13] MEDS: HYDROmorphone 2 MG/ML SYR IVP ×11 (01:06→23:25)
[2023-02-13] MEDS: Normal Saline Flush 10 ML SYR IVP ×7 (01:07→16:51)
[2023-02-13] MEDS: Famotidine 20 MG/2 ML VIAL IVP ×2 (05:29→18:01)
[2023-02-13] MEDS: ACETAMINOPHEN 1,000 MG/100 ML BTL 400 MG IVPB ×3 (05:30→18:02)
[2023-02-13] MEDS: Ketorolac 15 MG/ML VIAL IVP ×3 (05:30→18:02)
[2023-02-13] MEDS: PIPERACILLIN/TAZO 3.375 GM in Normal Saline 50 ML IVPB ×3 (05:55→21:13)
[2023-02-13 06:04] LABS: Abs Immature Grans 0.06 10^3/uL (0.0-0.06); Absolute Basophil Count 0.08 10^3/uL (0.0-0.2); Absolute Eosinophil Count 0.09 10^3/uL (0.0-0.7); Absolute Monocyte Count 1.16 10^3/uL (0.1-0.8); Absolute Neutrophil Count 11.39 10^3/uL (1.2-6.7); Basophils % 0.5; Eosinophils % 0.6; HCT 32.1 % (36.0-46.0); HGB 10.2 g/dL (11.2-15.7); Immature Grans % 0.4; Lymphocytes % 18.5; MCH 25.8 pg (27.0-33.0); MCHC 31.8 % (32.0-36.0); MCV 81 fL (80-95); MPV 8.7 fL (8.0-11.0); Monocytes % 7.4; Neutrophils % 72.6; RBC 3.96 10^6/uL (3.93-5.22); RDW 19.1 % (11.7-14.6); RDW-SD 56.2 fL; WBC 15.69 10^3/uL (4.4-10.8)
[2023-02-13 06:08] LABS: Platelet Count 872 10^3/uL (130-400)
[2023-02-13 06:16] LABS: ALT 21 U/L (14-59); AST 14 U/L (15-37); Albumin 1.7 g/dL (3.4-5.0); Alkaline Phosphatase 299 U/L (46-116); Anion Gap 6.6 mmol/L (3-11); BUN 7 mg/dL (7-18); Bilirubin, Total 0.8 mg/dL (0.2-1.0); C-Reactive Protein 7.27 mg/dL (0.0-0.3); CO2 26.4 mmol/L (21.0-32.0); CREATININE 0.7 mg/dL (0.55-1.02); Chloride 109 mmol/L (98-107); Estimated GFR 112.05 (mL/min/1.73m2); Glucose 102 mg/dL (74-106); Potassium 4.2 mmol/L (3.5-5.1); Sodium 142 mmol/L (136-145); Total Protein 7.3 g/dL (6.4-8.2)
--- NOTE | 2023-02-13 07:19 | W.PM.PROGNOT ---
Date of Service Date of service: 02/13/23 Time of Service: 07:19 Assessment and Plan Assessment and plan (1) Acute gangrenous cholecystitis: Status: Acute Assessment and plan: POD #3 laparotomy and attemtpted open cholecystectomy, patient had extensive inflammation around the GB bed and surrounding liver that Dr. Ruiz was unable to dissect the GB out of the fossa. Patient remains on Zosyn and seems to be improving. T max 37.9 yesterday morning. no fevers overnight. WBC declining to 15,000. ANDRADE drain still putting out serosanguinous drainage. Patient now w/ active bowel sounds and passing flatus. I will defer to surgeon's discretion when we may start feedings. If she is allowed to take po meds, I would resume her methadone and supplement her pain control w/ use of morphine or hydromorphone for breakthrough pain. I would continue the ketorolac and acetaminophen. Professional time spent interviewing and examining patient, discussion of goals of care with hospital team (care management, nursing and consulting professionals) was 30 minutes. (2) Sepsis: Assessment and plan: as above. (3) Diabetes mellitus, type 2: Assessment and plan: despite her not being under any medical treatment for DM for years, her HbA1c is 5.6%. I am suspecting if her DM was induced. Nevertheless we will continue to monitor her glucose readings and treat elevated readings. If she goes on TPN then her glucose will certainly climb. Hopefully she will be able to start po intake soon, i.e within the next day. (4) Protein-calorie malnutrition, mild: Status: Acute Assessment and plan: when able to take po, I would add protein supplements, consider nutritional consult. consider TPN if she is not able to begin po intake within couple days. (5) Anemia: Status: Chronic Assessment and plan: she has normocytic anemia but w/ elevated RDW, her iron studies are pending; folate is low. I have consulted w/ pharmacist on providing parenteral forms of folate, she probably could benefit from a banana bag for iv hydration which would provide her w/ much needed MVS, magensium and folate and thiamine. (6) Thrombocytosis: Status: Acute Assessment and plan: likely reactive from sepsis/cholecystitis (7) Intravenous drug abuse, continuous: Status: Acute Assessment and plan: patient is currently on ketamine drip but we will soon run out of ketamine and anyway this is no longer controlling her pain. I would recommend resumption of her methadone and start at 1/3 to 1/2 her prior dose and titrate. I would use hydromorphone or morphine for breakthrough pain and continue the keotrolac and acetaminophen. We could add hydroxyzine or benadryl prn for agitation/anxiety in addition to prn lorazepam. (8) Homeless: Status: Acute Assessment and plan: CM to asssist w/ providing patient w/ contacts for assistance w/ housing, community support services (9) DVT prophylaxis: Status: Acute Assessment and plan: enoxaparin 40 mg SC daily Subjective Subjective Interval history since last seen: Patient pulled her NG out over half way out. she has been passing flatus and she has active bowel sounds so I had nursing remove the NG as the patient refused to allow the nurse to advance the NG. Patient has been requiring increased frequency of narcotic anaalgesics. Exam Narrative Exam Narrative: Mabel is alert, oriented, she is non-cooperative this morning. Lungs: clear to auscultation Heart: RRR, no murmur or rub Abdomen: active bowel sounds throughout, soft, mild to moderate tenderness w/ palpation ANDRADE drains draining serosanguinous drainage, per nursing each has drained about 100 mL each overnight Extremities: no edema Objective Last Vital Signs Temp 36.7 C 02/13/23 05:30 Pulse 75 02/13/23 06:31 Resp 16 02/13/23 06:31 BP 150/85 H 02/13/23 06:31 Pulse Ox 98 02/13/23 06:31 Laboratory Results - last 24 hr 02/12/23 02/12/23 02/12/23 05:30 05:30 05:30 WBC RBC Hgb Hct MCV MCH MCHC RDW Plt Count MPV Reticulocyte % (Auto) 1.9 Immature Gran % Neutrophils % Lymphocytes % Monocytes % Eosinophils % Basophils % Nucleated RBC % Absolute Neutrophils Absolute Lymphocytes Absolute Monocytes Absolute Eosinophils Absolute Basophils Sodium Potassium Chloride Carbon Dioxide Anion Gap BUN Creatinine Est GFR (CKD-EPI 2020) Glucose Hemoglobin A1c 5.6 Calcium Iron 15 L TIBC 155 L Transferrin % Sat 10 L Total Bilirubin AST ALT Alkaline Phosphatase C-Reactive Protein Total Protein Albumin Add-On Test Request 02/12/23 02/13/23 02/13/23 Unknown 05:28 05:28 WBC 15.69 H RBC 3.96 Hgb 10.2 L Hct 32.1 L MCV 81 MCH 25.8 L MCHC 31.8 L RDW 19.1 H Plt Count 872 H* MPV 8.7 Reticulocyte % (Auto) Immature Gran % 0.4 Neutrophils % 72.6 Lymphocytes % 18.5 Monocytes % 7.4 Eosinophils % 0.6 Basophils % 0.5 Nucleated RBC % 0.0 Absolute Neutrophils 11.39 H Absolute Lymphocytes 2.90 Absolute Monocytes 1.16 H Absolute Eosinophils 0.09 Absolute Basophils 0.08 Sodium 142 Potassium 4.2 Chloride 109 H Carbon Dioxide 26.4 Anion Gap 6.6 BUN 7 Creatinine 0.7 Est GFR (CKD-EPI 2020) 112.05 Glucose 102 Hemoglobin A1c Calcium 8.0 L Iron TIBC Transferrin % Sat Total Bilirubin 0.8 AST 14 L ALT 21 Alkaline Phosphatase 299 H C-Reactive Protein 7.27 H Total Protein 7.3 Albumin 1.7 L Add-On Test Request Cancelled Time Spent with Patient Time Spent with Patient: 25-34 minutes Time was spent: preparing to see the patient(eg.review tests), ordering medications,tests, procedures, indepentently interpreting results, counseling the patient and care coordination
--- NOTE | 2023-02-13 07:24 | NUR.NOTE ---
0715: While giving report to Shannan Reyes RN, day shift nurse, Shannan noted that the NG tube came out to 34 cm compared to what it was at, 57cm. After talking to Dr. Short, decision was made to pull it out. Pt now has bowel sounds and is stating she has gas. Pt is alert and appropriate, talking and more involved with her care. Report given to Shannan.
[2023-02-13] MEDS: Enoxaparin 40 MG/0.4 ML SYR SC (07:49)
[2023-02-13] MEDS: POTASSIUM CHLORIDE/0.45% NACL 1,000 ML 100 MEQ IV ×2 (08:08→18:27)
[2023-02-13 09:05] LABS: Magnesium 2.2 mg/dL (1.8-2.4)
--- NOTE | 2023-02-13 09:19 | ANES_ITS ---
Date of service: 02/13/23 Time of Service: 08:25 Anesthesia Note Report Anesthesia Note: Talked with Mabel about her pain today and her ketamine infusions. She is currently still in the ICU (due to the ketamine), on the ketamine infusion at 0.5 mg/kg/min (~34 mg/hr). She is currently not having any untoward effects of hte ketamine. She endorses that she may have had some hallucinations from it yesterday into the evening (seeing people that where not into her room). She currently looks far more comfortable then prior to the OR, she also states that she feels more comfortable, much more so since the NGT is no longer in place. She is still receiving a fairly substantial dose of hydromorphone to help her pain. We discussed coming down on the ketamine and to hopefully turn it off in the next 24 hrs. She agrees with this plan. The plan to cut the ketamine in half was discussed with the BALLING MACHINE OPERATOR who is in agreement and will increase the gtt back up if there is a sig increase in pain. It was also discussed with the BALLING MACHINE OPERATOR and pt that since she doing well, that we work towards the removal of the central line and potentially placement of a PICC vs midline. a message was sent to Dr. Ruiz about this also.
--- NOTE | 2023-02-13 09:41 | PHA.REVIEW2 ---
Pharmacy Admission Review - Admission Clinical Review (Last Updated 02/12/23 @ 18:07 by Johanne Ruiz DO) Folate deficiency anemia (Acute) Anemia, iron deficiency, inadequate dietary intake (Acute) DVT prophylaxis (Acute) Protein-calorie malnutrition, mild (Acute) Homeless (Acute) Poor dentition (Acute) Abscess of left leg (Acute) Thrombocytosis (Acute) Leukocytosis (leucocytosis) (Acute) Tobacco use (Acute 08/29/15) Intravenous drug abuse, continuous (Acute) Acute gangrenous cholecystitis (Acute) Diarrhea (Active) No Known Allergies Allergy (Unverified 02/11/23 06:34) Resuscitation Status Full Code Height 5 ft 5 in Weight 68.5 kg - Comments Comments/Follow Ups: Chronic opiod use disorder: Pain control being monitored by Anesthesia. 05/26. Post-op failure to remove gallbladder, improving, afebrile, WBC down, H/H drifting down, positive bowel sounds, may begin feeding, pt pulled out NG tube, possible TPN if needed. BC no growth x24h, Peritoneal fluid no growth, Iron panel low, Folate low. If Methadone is restarted, will need dose clarification - Renal Dosing Renal Dosing: BUN 7 mg/dL (7-18) 02/13/23 05:28 Creatinine 0.7 mg/dL (0.55-1.02) 02/13/23 05:28 Medications needing adjustments: Reviewed - Anticoagulation Anticoagulation: Hgb 10.2 g/dL (11.2-15.7) L 02/13/23 05:28 Hct 32.1 % (36.0-46.0) L 02/13/23 05:28 Plt Count 872 10^3/uL (130-400) H* 02/13/23 05:28 INR 1.0 (0.9-1.1) 02/11/23 06:50 Creatinine 0.7 mg/dL (0.55-1.02) 02/13/23 05:28 DVT Prophylaxis: Reviewed Medications: Enoxaparin - Opiate Usage Evaluate Pain Scale/Pains Meds: Intervened (post-op Ketamine infusion currently @ 0.25mg/kg/hr, supply shortage, MD's aware, Anesthesia aware) - Relevant Labs Sodium 142 mmol/L (136-145) 02/13/23 05:28 Potassium 4.2 mmol/L (3.5-5.1) 02/13/23 05:28 Chloride 109 mmol/L (98-107) H 02/13/23 05:28 Magnesium 2.2 mg/dL (1.8-2.4) 02/13/23 05:28 C-Reactive Protein 7.27 mg/dL (0.0-0.3) H 02/13/23 05:28 Electrolytes, C-Reactive P, ESR: Reviewed (IVF's with KCL, Procal 0.1) - DM Control DM Control: Glucose 102 mg/dL (74-106) 02/13/23 05:28 Hemoglobin A1c 5.6 % (<5.7) 02/12/23 05:30 Finger Stick Blood Glucose 94 Finger Stick Blood Glucose 94 Finger Stick Blood Glucose 94 DM Control: Reviewed (Novolog scale) - Cardiac Review BP, HR, EF%: Reviewed - Qtc Review QTc: Reviewed (QTC 448) - IV to PO Switch IV Medications: Reviewed (currently all IV) - Home Meds Home Med List reviewed: Reviewed Relevent Home Meds Not ordered & why?: Methadone - Comments Comments/Follow Ups: Considering other pain control options, as Ketamine is in short supply. Morphine supply is critically low, options include Midazolam, Hydromorphone, surgeon aware Antibiotic Activity - Pharmacy Antibiotic Review Pharmacy Antibiotic Activity: C/S review (BC pending, no growth x24h, peritoneal fluid negative/pending) - Antibiotic Information Antibiotic Review Info: Zosyn extended infusion s/p Cholecystitis day#3...BC pending/pt improving
--- NOTE | 2023-02-13 14:06 | W.PM.PROGNOT ---
Date of Service Date of service: 02/13/23 Time of Service: 10:30 Assessment and Plan Assessment and plan (1) Acute gangrenous cholecystitis: Status: Acute Assessment and plan: - We did discuss findings at surgery. That I was unable to remove her gallbladder at this time due to intense inflammatory response. At this time my course of action is to do a 10-day course of IV antibiotics. We would wait 12 weeks and then bring her back to do a open gallbladder We discussed pain control while she is in the hospital. We have her ketamine down to 1.25 mg per kg and this seems to be helping to deal with her pain and anxiety and prevent withdrawal. She is getting 2 mg of Dilaudid an hour plus Ativan as needed. We do have enough ketamine in-house to keep this level of a drip going until Tuesday. My goal would be to wean her off tomorrow and hopefully switch her over to orals. We had a very long discussion about her prognosis and the importance of getting her somewhere where she would be able to wound do wound care. She is currently undomiciled. I have talked to high school social science teacher. We can hopefully get her into some temporary housing patient appears very motivated and wants to get back into her methadone program and get off drugs. I told her I am more than willing to help her in this endeavor as is the hospital she is going to have to initiate phone calls and we will assist her in finding housing and getting her back in the bar prep program. However she is going to need to make the commitment to stay in the hospital for that and receive a full 10 days of antibiotics. She said she was agreeable to do this and will do what ever it takes to get her healthy again. She says she has probably been sick since December. She has not been able to eat any meats or dairy. She has been having significant amounts of diarrhea and vomiting. The last 2 weeks, prior to coming into the ER, she was having so much pain she could not even go to the methadone clinic and was having persistent vomiting diarrhea and inability to eat. -We will try her on clears and see how she does with that. And if she does well then tomorrow we will work on getting a oral pain plan and get her back methadone and wean the ketamine. We will plan on placing a PICC line And continue with supportive care (2) Folate deficiency anemia: Status: Acute (3) Anemia, iron deficiency, inadequate dietary intake: Status: Acute (4) DVT prophylaxis: Status: Acute (5) Protein-calorie malnutrition, mild: Status: Acute (6) Homeless: Status: Acute (7) Poor dentition: Status: Acute (8) Abscess of left leg: Status: Acute (9) Thrombocytosis: Status: Acute (10) Anemia: Status: Chronic (11) Leukocytosis (leucocytosis): Status: Acute (12) Tobacco use: Status: Acute (13) Intravenous drug abuse, continuous: Status: Acute (14) Diarrhea: Status: Active (15) Depression: Subjective Subjective Interval history since last seen: Pt is doing well. no headaches. No CP or SOB. 1 times she is coughed up some sputum. But nothing on a regular basis. No dysuria. no leg pain or swelling. NGT is out. Pt is passing gas and feels hungry The lomeli has been out since POD #0 and pt been able to void Exam Const Other: PHYSICAL EXAM GENERAL APPEARANCE: Alert, , oriented, x 3,? in no acute distress HYDRATION: Well hydrated HEAD, EYES, EARS, NECK, THROAT: Head is normocephalic, pupils equal, round, reactive to light and accommodation, ocular movement intact, sclera clear and no jaundice. ?Dentition intact. No sore throat.? NECK: no lymphadenopathy.? Trachea midline.? Neck supple.? No JVD LUNGS: normal respiration/normal chest excursion. ?Clear to auscultation bilaterally. ?No wheeze. ?HEART: Regular rate and rhythm. no murmurs EXTREMITY: No edema or cyanosis.? no leg pain, redness, swelling.? Infected injection site on the left lower extremity is resolving ABDOMEN: soft and non-tender to palpation.? Normal bowel sounds.? Mucosa is clean dry and intact with no strikethrough Objective Last Vital Signs Temp 37.2 C 02/13/23 12:41 Pulse 71 02/13/23 11:46 Resp 16 02/13/23 12:40 BP 145/89 H 02/13/23 11:46 Pulse Ox 99 02/13/23 12:40 Laboratory Results - last 24 hr 02/13/23 02/13/23 02/13/23 05:28 05:28 05:28 WBC 15.69 H RBC 3.96 Hgb 10.2 L Hct 32.1 L MCV 81 MCH 25.8 L MCHC 31.8 L RDW 19.1 H Plt Count 872 H* MPV 8.7 Immature Gran % 0.4 Neutrophils % 72.6 Lymphocytes % 18.5 Monocytes % 7.4 Eosinophils % 0.6 Basophils % 0.5 Nucleated RBC % 0.0 Absolute Neutrophils 11.39 H Absolute Lymphocytes 2.90 Absolute Monocytes 1.16 H Absolute Eosinophils 0.09 Absolute Basophils 0.08 Sodium 142 Potassium 4.2 Chloride 109 H Carbon Dioxide 26.4 Anion Gap 6.6 BUN 7 Creatinine 0.7 Est GFR (CKD-EPI 2020) 112.05 Glucose 102 Calcium 8.0 L Magnesium 2.2 Total Bilirubin 0.8 AST 14 L ALT 21 Alkaline Phosphatase 299 H C-Reactive Protein 7.27 H Total Protein 7.3 Albumin 1.7 L Time Spent with Patient Time Spent with Patient: 35-49 minutes Time was spent: preparing to see the patient(eg.review tests), obtaining and/or reviewing separately otained hiistory, ordering medications,tests, procedures, referring, communicating with other health child care specialist, indepentently interpreting results, counseling the patient and care coordination
[2023-02-13] MEDS: Methocarbamol 750 MG TAB PO ×2 (14:48→19:29)
[2023-02-14] VITALS (46 sets, daily range): BP systolic 105–144; BP diastolic 68–91; PULSE 61–104; RESP 0–23; TEMP 36.7–37.1; O2SAT 97–99
[2023-02-14] MEDS: ACETAMINOPHEN 1,000 MG/100 ML BTL 400 MG IVPB ×4 (01:08→20:00)
[2023-02-14] MEDS: HYDROmorphone 2 MG/ML SYR IVP ×11 (01:09→20:16)
[2023-02-14] MEDS: Ketorolac 15 MG/ML VIAL IVP ×5 (01:09→23:48)
[2023-02-14] MEDS: Normal Saline Flush 10 ML SYR IVP ×3 (01:10→23:49)
[2023-02-14] MEDS: POTASSIUM CHLORIDE/0.45% NACL 1,000 ML 100 MEQ IV (04:23)
[2023-02-14] MEDS: PIPERACILLIN/TAZO 3.375 GM in Normal Saline 50 ML IVPB ×3 (05:36→21:25)
[2023-02-14] MEDS: Famotidine 20 MG/2 ML VIAL IVP ×2 (05:36→18:24)
[2023-02-14 06:39] LABS: Abs Immature Grans 0.06 10^3/uL (0.0-0.06); Absolute Basophil Count 0.08 10^3/uL (0.0-0.2); Absolute Eosinophil Count 0.57 10^3/uL (0.0-0.7); Basophils % 0.7; Eosinophils % 4.8; HCT 31.3 % (36.0-46.0); HGB 9.9 g/dL (11.2-15.7); Immature Grans % 0.5; Lymphocytes % 23.4; MCHC 31.6 % (32.0-36.0); MCV 82 fL (80-95); MPV 8.6 fL (8.0-11.0); Monocytes % 7.3; Neutrophils % 63.3; RBC 3.81 10^6/uL (3.93-5.22); RDW 19.1 % (11.7-14.6); WBC 11.86 10^3/uL (4.4-10.8)
[2023-02-14 06:42] LABS: Absolute Lymphocyte Count 2.78 10^3/uL (1.2-3.4); Absolute Monocyte Count 0.87 10^3/uL (0.1-0.8); Absolute Neutrophil Count 7.51 10^3/uL (1.2-6.7)
[2023-02-14 06:43] LABS: Platelet Count 816 10^3/uL (130-400)
[2023-02-14 06:50] LABS: Magnesium 1.9 mg/dL (1.8-2.4)
[2023-02-14 06:56] LABS: ALT 14 U/L (14-59); AST 11 U/L (15-37); Albumin 1.6 g/dL (3.4-5.0); Alkaline Phosphatase 252 U/L (46-116); Anion Gap 5.5 mmol/L (3-11); BUN 6 mg/dL (7-18); Bilirubin, Total 0.6 mg/dL (0.2-1.0); C-Reactive Protein 3.43 mg/dL (0.0-0.3); CO2 26.5 mmol/L (21.0-32.0); CREATININE 0.7 mg/dL (0.55-1.02); Calcium 8.3 mg/dL (8.5-10.1); Chloride 110 mmol/L (98-107); Estimated GFR 112.05 (mL/min/1.73m2); Glucose 104 mg/dL (74-106); Potassium 4.1 mmol/L (3.5-5.1); Sodium 142 mmol/L (136-145); Total Protein 7.1 g/dL (6.4-8.2)
[2023-02-14] MEDS: LORazepam 2 MG/ML VIAL 1 MG IVP ×4 (07:34→21:24)
--- NOTE | 2023-02-14 08:00 | DI.US_ITS ---
APPROVED REPORT EXAM: Comprehensive 2D, Doppler, and color-flow Echocardiogram Patient Location: In-Patient Room/Bed: [id number] Director: Arianna Wong RDCS (AE) Indications: IVDA/WBC Other Information Study Quality: Adequate. Technically limited study due to body habitus, inability to position patient exam done supine bedside icu. Abdomial bandage is present.. Conclusion Normal left ventricular wall thickness and chamber size. Ejection fraction is 60 to 65%. Wall motio n is normal Normal right ventricular size and systolic function Both atria are normal in size There is no structural or hemodynamically significant valvular disease Wall motion Left Ventricle The left ventricle is normal size. The left ventricular systolic function is normal. The left ventric ular ejection fraction is within the normal range. There is normal left ventricular wall thickness. T here is normal LV segmental wall motion. There is no ventricular septal defect visualized. LVEF is 60 -65%. Right Ventricle The right ventricle is normal size. The right ventricular systolic function is normal. Atria The left atrium size is normal. The right atrium size is normal. The interatrial septum is intact wit h no evidence for an atrial septal defect. Aortic Valve The aortic valve is normal in structure. Aortic valve is probably trileaflet. There is no aortic valv ular stenosis. No aortic regurgitation is present. Mitral Valve The mitral valve is normal in structure. No evidence of mitral valve stenosis. Trace mitral regurgita tion. Tricuspid Valve The tricuspid valve is normal in structure. There is no tricuspid valve stenosis. Trace tricuspid reg urgitation. Unable to assess PA pressure. Pulmonic Valve The pulmonary valve is normal in structure. There is no pulmonic valvular stenosis. There is no pulmo yuli valvular regurgitation. Great Vessels The aortic root is normal in size. The ascending aorta is normal in size. Aortic arch is normal in ca liber. The IVC was not visualized. Technically limited subcostal imaging, patient has abdominal armstrong ge. Pericardium Technically limited subcostal imaging. 2D Dimensions IVSD d PLAX 0.98 cm F: 0.6-1.0 LV Vol A2C d MOD 93.8 mL LVPW d PLAX 0.91 cm F: 0.6 - 1.0 LV Vol A4C d MOD 111.6 mL LVID d PLAX 4.29 cm F: 3.8 - 5.2 LA Area A4C s MOD 11.90 cm2 LVDs 2.90 cm F: 2.2 - 3.5 LA Area A2C s MOD 15.99 cm2 Ao Root d 2.88 cm F: 2.7 - 3.3 LV EF A4C MOD 64.2 % RA Area A4C 12.41 cm2 LV EF A2C MOD 60.6 % Ao Asc Diam d 2.83 cm F: 2.3 - 3.1 LV EF Biplane MOD 61.5 % LV EF Teichholz 60.9 % SV 64.45 mL LVEF (Mathis's) 61.51 % F: 54 - 74 LV Volume 104.77 mL F: 46 - 106 LV Volume Index 59.52 mL/m2 F: 29 - 61 LV Vol Biplane MOD 104.8 mL FS 32.30 % M-Mode TAPSE 2.26 cm (M/F) >1.7 LV Diastology MV E' medial 0.096 (>0.07 m/s) E/A Ratio 1.2 LV E/e MED 9.05 (<14) MV E Vmax 0.87 (0.4-1.3 m/s) MV E' lateral 0.134 (>0.1 m/s) MV A Vmax 0.70 (0.4-1.3 m/s) LV E/e LAT 6.50 (<14) MV E/A Ratio 1.18 MV E/E' medial 9.06 MV E/E' lateral 6.52 Aortic Valve LVOT Area 3.31 cm2 AoV Area Vmax 2.99 cm2 LVOT Vmax 1.00 m/s BHAVYA Mean Damian. 2.90 cm2 LVOT Mean Damian. 0.66 m/s LVOT Peak Grad 4.0 mmHg LVOT Mean Grad 2.0 mmHg LVOT VTI 0.198 m LVOT Diam s 2.05 cm AoV Vmax 1.11 m/s Velocity Ratio 0.90 AoV Mean Damian. 0.76 m/s AoV Peak Grad 4.9 mmHg LVOT SV 65.66 mL AoV Mean Grad 2.6 mmHg AoV VTI 0.220 m AoV Area VTI 2.99 cm2 Mitral Valve MV DT 184 (160-240 msec) MV PHT 53 msec MV Area PHT 4.13 cm2 MV VTI 0.251 m MV Area VTI 2.62 (4.0-6.0 cm2) Pulmonary Valve PV Vmax 0.93 (0.5-1.5 m/s) RVOT Peak Gr. 2.23 mmHg PV Peak Grad 3.5 mmHg RVOT Mean Gr. 1.10 mmHg PV Mean Grad 1.8 mmHg RVOT VTI 0.158 m PV VTI 0.197 m RVOT Vmax 0.75 m/s
[2023-02-14 09:20] LABS: AFP Tumor Marker <2.5 ng/mL (<8.1)
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
--- NOTE | 2023-02-14 10:59 | PDOC.ANES ---
Date of service: 02/14/23 Time of Service: 10:55 Anesthesia Note Report Anesthesia Note: PICC team at patient bedside, plan to utilize new line once confirmed and removed central line. Dr. Ruiz's plan for Ketamine infusion is to titrate the drip down to 0.05 mg/kg/min at 1300 and turn off at 1700. Sp[address] Dr[address] Ruiz in ICU and verbalized that we will continue to monitor her care until infusion has been stopped. Hopeful plan to transition patient's care from ICU to med/surg. Additionally, patient verbalized that he nerve block Skip completed under anesthesia is still in effect. Patient agrees with current plan and understands goal of med/surg.
--- NOTE | 2023-02-14 11:18 | DI.RAD_ITS ---
Exam(s) XR PORTABLE CHEST AP EXAM: XR PORTABLE CHEST AP CLINICAL HISTORY: line placement TECHNIQUE: 2D digital imaging was performed of the chest. One image was obtained. An AP view was ob tained. COMPARISON: CR,XR XR PORTABLE CHEST AP from 02/11/2023 FINDINGS: MEDIASTINUM: Normal. HEART: Normal. PULMONARY VASCULATURE: Normal. LUNGS: Clear. PLEURAL SPACE: No pleural effusion or pneumothorax. BONE:Within normal limits for the patient's age. OTHER FINDINGS:Portions of the right hemithorax were not included on this examination due to patient positioning. The right subclavian central venous catheter is stable in position. There has been int erval placement of a left PICC line. The tip is at the junction of the superior vena cava and right atrium. IMPRESSION: 1. Examination limited by patient positioning. 2. Tip of the left PICC line is in good position at the junction of the superior vena cava and right atrium. The findings were discussed with the primary care team on the date of the examination. DATA REPOSITORY: RADIATION DOSE DELIVERED:
[2023-02-14] MEDS: Enoxaparin 40 MG/0.4 ML SYR SC (11:23)
[2023-02-14] MEDS: Methocarbamol 750 MG TAB PO ×3 (11:23→20:16)
[2023-02-14 11:30] LABS: Hepatitis C Ab w Rflx HCV PCR Negative (Negative)
[2023-02-14] MEDS: Methadone Liquid 10 MG/ML 45 MG PO (13:37)
[2023-02-14] MEDS: POTASSIUM CHLORIDE/0.45% NACL 1,000 ML 30 MEQ IV (15:00)
[2023-02-14 15:29] LABS: Homocysteine 9.1 umol/L (5.0-13.9)
--- NOTE | 2023-02-14 17:10 | W.PM.PROGNOT ---
Date of Service Date of service: 02/14/23 Time of Service: 17:10 Assessment and Plan Assessment and plan (1) Acute gangrenous cholecystitis: Status: Acute Assessment and plan: Mabel is postop day 3 after attempted open cholecystectomy. Her leukocytosis is almost resolved. She has been afebrile. She is tolerating a diet. Her pain seems pretty well controlled on Dilaudid IV 2 mg every 1 hour. So far today she has had 12 mg. The ketamine was stopped. Continue with IV antibiotics and supportive care. (2) Folate deficiency anemia: Status: Acute (3) Anemia, iron deficiency, inadequate dietary intake: Status: Acute (4) DVT prophylaxis: Status: Acute (5) Protein-calorie malnutrition, mild: Status: Acute (6) Homeless: Status: Acute Assessment and plan: Patient did talk to community connections and they are trying to help find a hotel or something where she can go after she has been discharged from the hospital. (7) Poor dentition: Status: Acute (8) Abscess of left leg: Status: Acute (9) Thrombocytosis: Status: Acute Assessment and plan: Slowly improving (10) Leukocytosis (leucocytosis): Status: Acute Assessment and plan: Improving continue antibiotics (11) Tobacco use: Status: Acute (12) Intravenous drug abuse, continuous: Status: Acute Assessment and plan: Patient was restarted on methadone. (13) Diarrhea: Status: Active (14) Depression: Subjective Subjective Interval history since last seen: Mabel is 3 days status post attempted cholecystectomy. Due to the severity of inflammation it was not safe to proceed and therefore cholecystectomy was not done. She has been on antibiotics since then as well as ketamine drip. The ketamine drip has now stopped. The patient looks good she has been afebrile. Patient complains of pain mostly when she gets in and out of bed around her ANDRADE drains. She is having no trouble eating. She has noticed that drinking soda or a lot of juice seems to make her feel very bloated. She likes the Ensure clears and has been drinking quite a few of those during the day. Exam Const General: comfortable and no acute distress Nutritional Appearance: average body habitus Orientation: alert and oriented x3 HENMT Head: normocephalic and atraumatic Resp Effort & Inspection: normal respiratory effort Auscultation: clear to auscultation bilaterally Cardio Rate: regular rate Rhythm: regular rhythm Heart Sounds: no gallops, no murmurs and no rubs GI Inspection: other (JESSICA dressing intact. Suction is not working) Palpation: soft and tender (around the drains) Auscultation: normoactive bowel sounds Objective Last Vital Signs Temp 98.4 F 02/14/23 12:00 Pulse 65 02/14/23 08:00 Resp 15 02/14/23 11:30 BP 131/84 02/14/23 07:37 Pulse Ox 99 02/14/23 08:00 Laboratory Results - last 24 hr 02/11/23 02/11/23 02/11/23 06:50 09:30 09:30 WBC RBC Hgb Hct MCV MCH MCHC RDW Plt Count MPV Immature Gran % Neutrophils % Lymphocytes % Monocytes % Eosinophils % Basophils % Nucleated RBC % Absolute Neutrophils Absolute Lymphocytes Absolute Monocytes Absolute Eosinophils Absolute Basophils Sodium Potassium Chloride Carbon Dioxide Anion Gap BUN Creatinine Est GFR (CKD-EPI 2020) Glucose Calcium Magnesium Total Bilirubin AST ALT Alkaline Phosphatase C-Reactive Protein Total Protein Albumin Tumor Marker AFP Hepatitis C Antibody Negative HIV 1&2 Ag/Ab, 4th Gen Negative Path Cons Comment See Comment 02/12/23 02/14/23 02/14/23 05:30 06:00 06:00 WBC 11.86 H RBC 3.81 L Hgb 9.9 L Hct 31.3 L MCV 82 MCH 26.0 L MCHC 31.6 L RDW 19.1 H Plt Count 816 H* MPV 8.6 Immature Gran % 0.5 Neutrophils % 63.3 Lymphocytes % 23.4 Monocytes % 7.3 Eosinophils % 4.8 Basophils % 0.7 Nucleated RBC % 0.0 Absolute Neutrophils 7.51 H Absolute Lymphocytes 2.78 Absolute Monocytes 0.87 H Absolute Eosinophils 0.57 Absolute Basophils 0.08 Sodium 142 Potassium 4.1 Chloride 110 H Carbon Dioxide 26.5 Anion Gap 5.5 BUN 6 L Creatinine 0.7 Est GFR (CKD-EPI 2020) 112.05 Glucose 104 Calcium 8.3 L Magnesium Total Bilirubin 0.6 AST 11 L ALT 14 Alkaline Phosphatase 252 H C-Reactive Protein 3.43 H Total Protein 7.1 Albumin 1.6 L Tumor Marker AFP <2.5 Hepatitis C Antibody HIV 1&2 Ag/Ab, 4th Gen Path Cons Comment 02/14/23 06:00 WBC RBC Hgb Hct MCV MCH MCHC RDW Plt Count MPV Immature Gran % Neutrophils % Lymphocytes % Monocytes % Eosinophils % Basophils % Nucleated RBC % Absolute Neutrophils Absolute Lymphocytes Absolute Monocytes Absolute Eosinophils Absolute Basophils Sodium Potassium Chloride Carbon Dioxide Anion Gap BUN Creatinine Est GFR (CKD-EPI 2020) Glucose Calcium Magnesium 1.9 Total Bilirubin AST ALT Alkaline Phosphatase C-Reactive Protein Total Protein Albumin Tumor Marker AFP Hepatitis C Antibody HIV 1&2 Ag/Ab, 4th Gen Path Cons Comment Time Spent with Patient Time Spent with Patient: <25 minutes Time was spent: preparing to see the patient(eg.review tests), obtaining and/or reviewing separately otained hiistory, indepentently interpreting results and counseling the patient
[2023-02-15] VITALS (22 sets, daily range): BP systolic 102–126; BP diastolic 55–70; PULSE 70–92; RESP 8–21; TEMP 36.6–37.2; O2SAT 95–99
[2023-02-15] MEDS: ACETAMINOPHEN 1,000 MG/100 ML BTL 400 MG IVPB ×2 (01:30→06:15)
[2023-02-15] MEDS: HYDROmorphone 2 MG/ML SYR IVP ×6 (02:09→22:10)
[2023-02-15] MEDS: LORazepam 2 MG/ML VIAL 1 MG IVP (04:42)
[2023-02-15] MEDS: Ketorolac 15 MG/ML VIAL IVP ×3 (06:30→17:53)
[2023-02-15] MEDS: Famotidine 20 MG/2 ML VIAL IVP (06:30)
[2023-02-15] MEDS: PIPERACILLIN/TAZO 3.375 GM in Normal Saline 50 ML IVPB ×3 (06:32→22:43)
--- NOTE | 2023-02-15 07:16 | W.PM.PROGNOT ---
Date of Service Date of service: 02/15/23 Time of Service: 07:16 Assessment and Plan Assessment and plan (1) Acute gangrenous cholecystitis: Status: Acute Assessment and plan: Mabel is postop day 4 after attempted open cholecystectomy. No BM. She would like to hold off on bowel meds at this time Pain well controlled encouraged activity OOB Pulmonary toilet -pt doing well. Transfer to med sx ketamine d/c pain meds adjusted. would not increase methadone at this time as this will only need to increase the narctoic requirements. dilaudid and ativan po w/ tylenol/toradol/robaxin PICC placed. 10 days of Zosyn total supportive care need to find housing. (2) Folate deficiency anemia: Status: Acute (3) Anemia, iron deficiency, inadequate dietary intake: Status: Acute (4) DVT prophylaxis: Status: Acute (5) Protein-calorie malnutrition, mild: Status: Acute (6) Homeless: Status: Acute Assessment and plan: Patient did talk to community connections and they are trying to help find a hotel or something where she can go after she has been discharged from the hospital. (7) Poor dentition: Status: Acute (8) Abscess of left leg: Status: Acute (9) Thrombocytosis: Status: Acute Assessment and plan: Slowly improving (10) Leukocytosis (leucocytosis): Status: Acute Assessment and plan: Improving continue antibiotics (11) Tobacco use: Status: Acute (12) Intravenous drug abuse, continuous: Status: Acute Assessment and plan: Patient was restarted on methadone. (13) Diarrhea: Status: Active (14) Depression: Subjective Subjective Interval history since last seen: Mabel reports that she is feeling well today. She describes that her pain has been fairly well controlled over night. She is having some burning, sharp pain that seems to be overlying the incision site. She questions if this discomfort is related to the ANDRADE drain near this location. denies any nausea, vomiting, fevers or chills. Exam Const General: cooperative, healthy appearing and comfortable Orientation: alert and oriented x3 Resp Effort & Inspection: normal respiratory effort, no audible wheezes and no cough GI Inspection: normal to inspection and non-distended Palpation: soft, no guarding and tender in the RUQ Other: ANDRADE Drain x 2 serosanginous drainage JESSICA dressing in place Objective Last Vital Signs Temp 36.7 C 02/15/23 04:05 Pulse 71 02/15/23 04:01 Resp 12 02/15/23 04:01 BP 105/67 02/15/23 04:01 Pulse Ox 99 02/15/23 04:01 Laboratory Results - last 24 hr 02/11/23 02/11/23 02/11/23 06:50 09:30 09:30 Tumor Marker AFP Homocysteine Hepatitis C Antibody Negative HIV 1&2 Ag/Ab, 4th Gen Negative Path Cons Comment See Comment 02/12/23 02/12/23 05:30 10:41 Tumor Marker AFP <2.5 Homocysteine 9.1 Hepatitis C Antibody HIV 1&2 Ag/Ab, 4th Gen Path Cons Comment Time Spent with Patient Time Spent with Patient: >50 minutes Time was spent: preparing to see the patient(eg.review tests), obtaining and/or reviewing separately otained hiistory, ordering medications,tests, procedures, referring, communicating with other health healthcare economics manager, indepentently interpreting results, counseling the patient and care coordination
[2023-02-15] MEDS: Normal Saline Flush 10 ML SYR IVP ×4 (07:29→22:44)
[2023-02-15] MEDS: Methocarbamol 750 MG TAB PO ×3 (07:39→20:31)
[2023-02-15] MEDS: Methadone Liquid 10 MG/ML 45 MG PO (08:06)
[2023-02-15 08:21] LABS: HCT 31.7 % (36.0-46.0); HGB 9.9 g/dL (11.2-15.7); MCH 26.1 pg (27.0-33.0); MCHC 31.2 % (32.0-36.0); MCV 83 fL (80-95); MPV 8.6 fL (8.0-11.0); RDW 19.2 % (11.7-14.6); RDW-SD 58.2 fL; WBC 13.08 10^3/uL (4.4-10.8)
[2023-02-15 08:23] LABS: Platelet Count 809 10^3/uL (130-400)
--- NOTE | 2023-02-15 08:29 | PDOC.CMPRO ---
- If Service Date Differs Date of service: 02/15/23 Time of Service: 08:29 Care Management Progress Note S/O: Mabel remains inpatient on IV ABX-anticipated for the next few days. CM will continue to follow. A: Mabel is a 42 year old female admitted to [facility] on 02/11/23 for acute cholecystitis. P: Mabel is currently being closely monitored in the ICU. She will follow up with an director external communications provider post hospitalization. Her potential complex medical needs post discharge are complicated by her housing status. CM will provide resources within the community to support her discharge plan. CM will continue to follow.
[2023-02-15] MEDS: Enoxaparin 40 MG/0.4 ML SYR SC (09:40)
[2023-02-15] MEDS: HYDROmorphone 4 MG TAB PO ×3 (11:52→20:31)
[2023-02-15] MEDS: Acetaminophen 500 MG TAB 1000 MG PO ×2 (11:56→17:53)
[2023-02-15] MEDS: LORazepam 1 MG TAB PO ×3 (11:56→20:30)
--- NOTE | 2023-02-15 20:58 | NUR.NOTE ---
Nursing Note: Patient arrived from ICU 222 to [facility] via wheelchair at 2017. Patient is alert and oriented x3. Patient has a PICC line to the left upper arm. JESSICA dressing to right upper abdomen. Patient reports pain 10/10. Patient is due for pain medication. Lung sounds clear and diminished bilaterally. Patient does have IVDA history with squires on her arms and legs, One spot on her left, lower extremity is raised and red. Patient belongings was moved with the patient. Patient has 2 belonging bags in the closet in her room.
[2023-02-16] VITALS (7 sets, daily range): BP systolic 107–128; BP diastolic 73–93; PULSE 83–130; RESP 16–18; TEMP 36.2–36.9; O2SAT 98–100
[2023-02-16] MEDS: Normal Saline Flush 10 ML SYR IVP ×3 (00:43→07:59)
[2023-02-16] MEDS: Acetaminophen 500 MG TAB 1000 MG PO ×4 (00:43→18:32)
[2023-02-16] MEDS: Ketorolac 15 MG/ML VIAL IVP ×3 (00:43→12:26)
[2023-02-16] MEDS: LORazepam 2 MG/ML VIAL 0.5 MG IVP (00:53)
[2023-02-16] MEDS: HYDROmorphone 4 MG TAB PO ×5 (00:53→21:39)
[2023-02-16] MEDS: HYDROmorphone 2 MG/ML SYR IVP ×5 (04:56→18:34)
[2023-02-16 06:57] LABS: HCT 31.8 % (36.0-46.0); HGB 9.9 g/dL (11.2-15.7); MCHC 31.1 % (32.0-36.0); MCV 84 fL (80-95); MPV 8.3 fL (8.0-11.0); Platelet Count 750 10^3/uL (130-400); RBC 3.81 10^6/uL (3.93-5.22); RDW 18.9 % (11.7-14.6); RDW-SD 57.1 fL; WBC 12.68 10^3/uL (4.4-10.8)
[2023-02-16] MEDS: PIPERACILLIN/TAZO 3.375 GM in Normal Saline 50 ML IVPB ×3 (06:58→21:31)
[2023-02-16] MEDS: Enoxaparin 40 MG/0.4 ML SYR SC (08:00)
[2023-02-16] MEDS: LORazepam 1 MG TAB PO ×4 (08:01→21:29)
[2023-02-16] MEDS: Methocarbamol 750 MG TAB PO ×3 (08:01→21:29)
--- NOTE | 2023-02-16 08:06 | NUR.NOTE ---
Patient complaint of pain to the abdomen. Dilaudid 4mg was administered. Patient got upset stated she was being given pain medications right around the clock while in the ICU. Patient was reminded that the medication that was administered is not scheduled and its based on when she asked. She reiterated that when she was in the ICU she never had to asked at all. she was given right around the clock. Patient was further educated that the ICU and the medical surgical is 2 different units. It might have been scheduled while in the ICU but its not scheduled at this time here. This nurse further explained that we will have the MD review her pain medications and possible scheduled these meds.
--- NOTE | 2023-02-16 08:07 | W.PM.PROGNOT ---
Date of Service Date of service: 02/16/23 Time of Service: 08:07 Assessment and Plan Assessment and plan (1) Acute gangrenous cholecystitis: Status: Acute Assessment and plan: Mabel is postop day 5 after attempted open cholecystectomy. Pain fairly well controlled, will ensure meds are scheduled to help stay on top of her pain complaints. encouraged activity OOB Pulmonary toilet Continue IV antibioitics and medical management. I saw and examined Mabel, and I agree with Pearl's notes. She has been up and more active today, and generally she feels pretty good. Her pain is controlled at this point. She has been tolerating her diet without any nausea or vomiting. Her white blood cell count seems to be plateaued. I will repeat the CBC again tomorrow, anticipating transition over to enteral antibiotics. The volume of her surgical drains is still too high to remove, although they appear to be mostly serosanguineous. (2) Folate deficiency anemia: Status: Acute (3) Anemia, iron deficiency, inadequate dietary intake: Status: Acute (4) DVT prophylaxis: Status: Acute (5) Protein-calorie malnutrition, mild: Status: Acute (6) Homeless: Status: Acute Assessment and plan: Patient did talk to community connections and they are trying to help find a hotel or something where she can go after she has been discharged from the hospital. (7) Poor dentition: Status: Acute (8) Abscess of left leg: Status: Acute (9) Thrombocytosis: Status: Acute Assessment and plan: Slowly improving (10) Leukocytosis (leucocytosis): Status: Acute Assessment and plan: Improving continue antibiotics (11) Tobacco use: Status: Acute (12) Intravenous drug abuse, continuous: Status: Acute Assessment and plan: Patient was restarted on methadone. (13) Diarrhea: Status: Active (14) Depression: Subjective Subjective Interval history since last seen: Mabel states she is feeling okay today. She feels that the PO meds are not as effective or lasting as long as the IV. Exam Const General: cooperative, healthy appearing and comfortable Orientation: alert and oriented x3 Resp Effort & Inspection: normal respiratory effort, no audible wheezes and no cough GI Inspection: normal to inspection Palpation: soft, no guarding and tender Other: ANDRADE drains with serosanginous drainage JESSICA pad dressing in place. Pump is not on. Objective Last Vital Signs Temp 36.3 C L 02/16/23 07:57 Pulse 86 02/16/23 00:33 Resp 18 02/16/23 00:07 BP 117/75 02/16/23 00:07 Pulse Ox 98 02/16/23 00:07 Laboratory Results - last 24 hr 02/15/23 02/16/23 05:50 06:10 WBC 13.08 H 12.68 H RBC 3.80 L 3.81 L Hgb 9.9 L 9.9 L Hct 31.7 L 31.8 L MCV 83 84 MCH 26.1 L 26.0 L MCHC 31.2 L 31.1 L RDW 19.2 H 18.9 H Plt Count 809 H* 750 H MPV 8.6 8.3 Time Spent with Patient Time Spent with Patient: 25-34 minutes Time was spent: preparing to see the patient(eg.review tests) and counseling the patient
[2023-02-16] MEDS: Methadone Liquid 10 MG/ML 45 MG PO (08:55)
--- NOTE | 2023-02-16 11:48 | PDOC.CMPRO ---
- If Service Date Differs Date of service: 02/16/23 Time of Service: 11:49 Care Management Progress Note S/O: Per report, Mabel is being transitioned to oral medications, and feels that her pain is not as controlled. She has been working with [employer] who has supported her with food benefits and is inquiring about housing through economic services. CM will continue to follow. A: Mabel is a 42 year old female admitted to [facility] on 02/11/23 for acute cholecystitis. P: Mabel is currently being closely monitored in the ICU. She will follow up with an marketing rotation associate provider post hospitalization. Her potential complex medical needs post discharge are complicated by her housing status. CM will provide resources within the community to support her discharge plan. CM will continue to follow.
[2023-02-17] MEDS: Acetaminophen 500 MG TAB 1000 MG PO ×4 (00:26→17:04)
[2023-02-17] MEDS: LORazepam 2 MG/ML VIAL 0.5 MG IVP (00:42)
[2023-02-17] MEDS: HYDROmorphone 2 MG/ML SYR IVP ×3 (00:43→17:05)
[2023-02-17] MEDS: Normal Saline Flush 10 ML SYR IVP ×3 (00:45→06:54)
[2023-02-17] MEDS: HYDROmorphone 4 MG TAB PO ×5 (05:45→22:18)
[2023-02-17] MEDS: PIPERACILLIN/TAZO 3.375 GM in Normal Saline 50 ML IVPB ×3 (05:46→22:33)
[2023-02-17 06:50] LABS: HCT 30.9 % (36.0-46.0); HGB 9.8 g/dL (11.2-15.7); MCH 26.3 pg (27.0-33.0); MCHC 31.7 % (32.0-36.0); MCV 83 fL (80-95); MPV 8.2 fL (8.0-11.0); RBC 3.73 10^6/uL (3.93-5.22); RDW 18.9 % (11.7-14.6); RDW-SD 56.6 fL; WBC 16.38 10^3/uL (4.4-10.8)
[2023-02-17 07:14] LABS: Platelet Count 755 10^3/uL (130-400)
[2023-02-17 07:58] VITALS: BP 108/72; PULSE 93; RESP 16; TEMP 37.4; O2SAT 99
--- NOTE | 2023-02-17 08:04 | W.PM.PROGNOT ---
Date of Service Date of service: 02/17/23 Time of Service: 08:05 Assessment and Plan Assessment and plan (1) Acute gangrenous cholecystitis: Status: Acute Assessment and plan: Mabel is postop day 6 after attempted open cholecystectomy. Pain fairly well controlled encouraged activity OOB Pulmonary toilet ANDRADE serosanginous drainage x 2 Continue IV antibioitics, WBC continues to be elevated Continue supportive care -Patient seen and examined. Agree with above. Remove drains tomorrow She is working with case management to get housing and her Methadone reinstated at [facility]. -Plan discharge early Tuesday after she has received all her antibiotics. And then she can go to [facility] and reapply. I told her to call and contact him and set up an appointment for Tuesday (2) Folate deficiency anemia: Status: Acute (3) Anemia, iron deficiency, inadequate dietary intake: Status: Acute (4) DVT prophylaxis: Status: Acute (5) Protein-calorie malnutrition, mild: Status: Acute (6) Homeless: Status: Acute Assessment and plan: Patient did talk to community connections and they are trying to help find a hotel or something where she can go after she has been discharged from the hospital. (7) Poor dentition: Status: Acute (8) Abscess of left leg: Status: Acute (9) Thrombocytosis: Status: Acute Assessment and plan: Slowly improving (10) Leukocytosis (leucocytosis): Status: Acute Assessment and plan: Improving continue antibiotics (11) Tobacco use: Status: Acute (12) Intravenous drug abuse, continuous: Status: Acute Assessment and plan: Patient was restarted on methadone. (13) Diarrhea: Status: Active (14) Depression: Subjective Subjective Interval history since last seen: Arrived with Mabel sitting up in bed. She expresses that she is very stressed at this time regarding being unable to get in touch with her and communicate with her partner. She also expresses that she is frustrated about not being able to concern housing options upon discharge. She states that she did call the numbers provided to her however was notified that they would not be able to provide assistance until the day of her discharge. That she would need to call back. Exam Const General: cooperative, healthy appearing and comfortable Orientation: alert and oriented x3 Resp Effort & Inspection: normal respiratory effort, no audible wheezes and no cough GI Inspection: normal to inspection Palpation: soft, no guarding and nontender Objective Last Vital Signs Temp 37.4 C 02/17/23 07:58 Pulse 93 H 02/17/23 07:58 Resp 16 02/17/23 07:58 BP 108/72 02/17/23 07:58 Pulse Ox 99 02/17/23 07:58 Laboratory Results - last 24 hr 02/17/23 02/17/23 05:25 06:30 WBC Cancelled 16.38 H RBC Cancelled 3.73 L Hgb Cancelled 9.8 L Hct Cancelled 30.9 L MCV Cancelled 83 MCH Cancelled 26.3 L MCHC Cancelled 31.7 L RDW Cancelled 18.9 H Plt Count Cancelled 755 H* MPV Cancelled 8.2 Time Spent with Patient Time Spent with Patient: 35-49 minutes Time was spent: preparing to see the patient(eg.review tests), obtaining and/or reviewing separately otained hiistory, ordering medications,tests, procedures, referring, communicating with other health career specialist, indepentently interpreting results, counseling the patient and care coordination
[2023-02-17] MEDS: Methocarbamol 750 MG TAB PO ×3 (08:06→20:09)
[2023-02-17] MEDS: LORazepam 1 MG TAB PO ×4 (08:07→20:09)
[2023-02-17] MEDS: Enoxaparin 40 MG/0.4 ML SYR SC (08:07)
[2023-02-17] MEDS: Methadone Liquid 10 MG/ML 45 MG PO (08:07)
--- NOTE | 2023-02-17 11:11 | CMPROGNOTE_ITS ---
- If Service Date Differs Date of service: 02/17/23 Time of Service: 11:11 Care Management Progress Note S/O: Mabel was sitting up in her room when CM met with her. She was in good spirits, and stated that her children are planning to visit this afternoon, which she is happy about. She stated that her will be calling 211 to obtain emergency housing this afternoon, with a plan to add her on to the voucher once she is discharged from the hospital. She stated that her food stamp benefits should be active soon, likely by the time she is discharged. She expressed concern with the diet restrictions, as she is very limited in what she can eat, but she understands that it is important for her to follow. She is nervous about her care post surgically, if she is not able to find housing locally. She has been connected to [employer], and economic services for support. CM will continue to follow. A: Mabel is a 42 year old female admitted to [facility] on 02/11/23 for acute cholecystitis. P: Mabel is currently being closely monitored in the ICU. She will follow up with an fire prevention officer provider post hospitalization. Her potential complex medical needs post discharge are complicated by her housing status. CM will provide resources within the community to support her discharge plan. CM will continue to follow.
--- NOTE | 2023-02-17 14:18 | CHAPLAIN ---
Mabel was sitting up in bed, dressed in her own clothes and waiting on hold on the phone when I visited. I introduced myself, explained my role and offered support. Mabel was pleasant but did not seem to be interested in further conversation.
[2023-02-17 17:25] VITALS: BP 119/79; PULSE 91; RESP 16; TEMP 36.6; O2SAT 92
--- NOTE | 2023-02-17 18:40 | NUR.NOTE ---
Addendum entered by Pinky Oleary RN 02/17/23 19:18: At bedside to saline lock IV. Patient in bathroom, with door ajar. Seen in mirror sitting on edge of bathtub with folded foil in her hands. When patient aware that staff at bedside she attempts to close the bathroom door. When confronted on behavior and foil patient denies that she has anything and states, I don't know what you're talking about. Reported patient's behavior to charge nurse, Nolan. Shortly after patient calls CLINICAL CARE LEADER and nursing staff to bedside. Patient tearful and states that she should have been honest. Holds small finisher special stocks in hands and states that this is her coping mechanism. States that her method of drug choice is intravenous. That each time she is given IV medications it is a struggle for her addiction. Original Note: Nursing Note:
--- NOTE | 2023-02-17 19:32 | NUR.NOTE ---
Nursing Note: Pt rang and asked to speak with RN and I. We asked cc to come down as witness also, and pt told us she uses tinfoil to cope with her addiction. Pt had tin foil in hand in the bathroom. Children and a man were in the room. Pt was tearful at this time.
[2023-02-17 20:28] VITALS: PULSE 108
[2023-02-18] VITALS (8 sets, daily range): BP systolic 97–122; BP diastolic 60–77; PULSE 73–128; RESP 17–20; TEMP 36.3–37; O2SAT 94–99
[2023-02-18] MEDS: Acetaminophen 500 MG TAB 1000 MG PO ×4 (00:12→22:32)
[2023-02-18] MEDS: Normal Saline Flush 10 ML SYR IVP ×3 (00:22→20:00)
[2023-02-18] MEDS: LORazepam 2 MG/ML VIAL 0.5 MG IVP (00:22)
[2023-02-18] MEDS: PIPERACILLIN/TAZO 3.375 GM in Normal Saline 50 ML IVPB ×3 (06:17→21:19)
[2023-02-18] MEDS: Enoxaparin 40 MG/0.4 ML SYR SC (07:52)
[2023-02-18] MEDS: LORazepam 1 MG TAB PO ×3 (07:52→21:11)
[2023-02-18] MEDS: HYDROmorphone 4 MG TAB PO ×4 (07:52→22:32)
[2023-02-18] MEDS: Methocarbamol 750 MG TAB PO ×3 (07:52→21:11)
[2023-02-18] MEDS: Methadone Liquid 10 MG/ML 45 MG PO (08:53)
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
--- NOTE | 2023-02-18 11:35 | PDOC.CMPRO ---
- If Service Date Differs Date of service: 02/18/23 Time of Service: 11:35 Care Management Progress Note S/O: Mabel was sitting up in bed when MARILU met with her. She stated that she is having a difficult day, due to many things, including not being able to get in touch with her s/o, Kevin. She stated that she called 211 and there is a potential bed available in [facility], but Kevin needs to complete the intake. Per MD, Mabel has made some statements regarding suicidal thoughts. CM contacted [facility], who met with her and provided her with resources. She is cleared from [facility] to be discharged to the community, when medically cleared. CM provided Mabel with a coloring book; her s/o brought her other arts/crafts items, which she enjoys. Per MD, Mabel will likely be discharged on Tuesday, after her IV abx course is complete. MARILU contacted [facility] today and coordinated a new intake appointment for Mabel on 02/22/23 at 8am, which will be on her discharge instructions. CM will continue to follow. A: Mabel is a 42 year old female admitted to [facility] on 02/11/23 for acute cholecystitis. P: Mabel will return to the community once she is medically cleared, and her abx are complete. She will follow up with an production editor provider post hospitalization. Her potential complex medical needs post discharge are complicated by her housing status. CM will provide resources within the community to support her discharge plan. CM will continue to follow.
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
[2023-02-18] MEDS: HYDROmorphone 2 MG/ML SYR IVP (20:00)
[2023-02-19] VITALS (9 sets, daily range): BP systolic 88–122; BP diastolic 55–72; PULSE 76–105; RESP 12–20; TEMP 36.4–37.2; O2SAT 93–100
[2023-02-19] MEDS: Normal Saline Flush 10 ML SYR IVP (00:22)
[2023-02-19] MEDS: HYDROmorphone 2 MG/ML SYR IVP ×2 (00:23→20:55)
[2023-02-19] MEDS: HYDROmorphone 4 MG TAB PO ×4 (04:36→17:49)
[2023-02-19] MEDS: Acetaminophen 500 MG TAB 1000 MG PO ×4 (06:05→23:38)
[2023-02-19] MEDS: PIPERACILLIN/TAZO 3.375 GM in Normal Saline 50 ML IVPB (06:06)
[2023-02-19 06:40] LABS: HCT 29.3 % (36.0-46.0); HGB 9.1 g/dL (11.2-15.7); MCH 26.3 pg (27.0-33.0); MCHC 31.1 % (32.0-36.0); MCV 85 fL (80-95); MPV 8.5 fL (8.0-11.0); Platelet Count 725 10^3/uL (130-400); RBC 3.46 10^6/uL (3.93-5.22); RDW 18.6 % (11.7-14.6); RDW-SD 57.4 fL; WBC 11.39 10^3/uL (4.4-10.8)
--- NOTE | 2023-02-19 07:08 | NUR.NOTE ---
Nursing Note: Patient reported that her boyfriend brought her ice cream, she stated she had a few bites. Patient educated on fat free diet, patient reports that fat free only means dairy free. healthy alternatives offered to patient and education provided to patient as well as her boyfriend
[2023-02-19] MEDS: Enoxaparin 40 MG/0.4 ML SYR SC (09:53)
[2023-02-19] MEDS: Methadone Liquid 10 MG/ML 45 MG PO (09:53)
[2023-02-19] MEDS: Methocarbamol 750 MG TAB PO ×3 (09:53→20:56)
[2023-02-19] MEDS: LORazepam 1 MG TAB PO ×3 (09:53→20:55)
--- NOTE | 2023-02-19 12:23 | W.PM.PROGNOT ---
Date of Service Date of service: 02/19/23 Time of Service: 12:23 Assessment and Plan Assessment and plan (1) Acute gangrenous cholecystitis: Status: Acute Assessment and plan: I removed the left abdominal drain today in the usual fashion. She tolerated this well. I will switch over to antibiotics by mouth, and repeat a CBC tomorrow. Subjective Subjective Interval history since last seen: She said she feels a little better this morning, but remains extremely tired. She denies any nausea or vomiting, and has been tolerating food without any difficulty. Exam GI Other: Abdomen is soft and nondistended. She is tender in the mid epigastrium and right upper quadrant. Incision is clean, and there are no signs of infection. Objective Last Vital Signs Temp 99 F 02/19/23 09:40 Pulse 91 H 02/19/23 09:40 Resp 12 02/19/23 09:40 BP 109/69 02/19/23 09:40 Pulse Ox 98 02/19/23 09:40 Laboratory Results - last 24 hr 02/19/23 06:07 WBC 11.39 H RBC 3.46 L Hgb 9.1 L Hct 29.3 L MCV 85 MCH 26.3 L MCHC 31.1 L RDW 18.6 H Plt Count 725 H MPV 8.5 Time Spent with Patient Time Spent with Patient: 25-34 minutes Time was spent: preparing to see the patient(eg.review tests), ordering medications,tests, procedures and counseling the patient
[2023-02-19] MEDS: metroNIDAZOLE 500 MG TAB PO ×2 (14:10→20:56)
[2023-02-19] MEDS: Naloxone 0.4 MG/ML VIAL IVP (19:43)
--- NOTE | 2023-02-19 20:03 | NUR.NOTE ---
Nursing Note: Nursing staff when rounding on patient noted the patient was lethargic and noted to have a blood pressure of 88/55, pts boyfriend present at bedside and a friend of the boyfriend present as well. Patient given narcan per MD order and pt reports feeling cold and was notably more aware. Retake blood pressure was 122/77
--- NOTE | 2023-02-19 20:30 | NUR.NOTE ---
Pt given IV Narcan after HEAD OF ACQUISITIONS reported pt sitting on the side of the bed confused, lethargic, w/Low B/P of 88/55. Pt immediately became oriented and aware of her surroundings. B/P-120/75, HR-89. Pt AOx4) Will continue to monitor.
[2023-02-19] MEDS: Ciprofloxacin 500 MG TAB PO (20:55)
[2023-02-20] VITALS: PULSE 102
[2023-02-20 02:18] VITALS: BP 114/75; PULSE 80; RESP 20; TEMP 36.2; O2SAT 100
[2023-02-20] MEDS: HYDROmorphone 4 MG TAB PO ×2 (02:21→09:42)
[2023-02-20] MEDS: LORazepam 2 MG/ML VIAL 0.5 MG IVP (02:45)
[2023-02-20] MEDS: Normal Saline Flush 10 ML SYR IVP ×2 (02:46→02:55)
[2023-02-20] MEDS: metroNIDAZOLE 500 MG TAB PO (05:44)
[2023-02-20] MEDS: Acetaminophen 500 MG TAB 1000 MG PO ×2 (05:44→11:48)
[2023-02-20 06:33] VITALS: BP 110/68; PULSE 85; RESP 18; TEMP 36.5; O2SAT 100
[2023-02-20 07:07] VITALS: PULSE 77
[2023-02-20 07:43] LABS: HCT 27.6 % (36.0-46.0); HGB 8.5 g/dL (11.2-15.7); MCH 26.2 pg (27.0-33.0); MCHC 30.8 % (32.0-36.0); MCV 85 fL (80-95); MPV 8.9 fL (8.0-11.0); Platelet Count 707 10^3/uL (130-400); RBC 3.24 10^6/uL (3.93-5.22); RDW 18.3 % (11.7-14.6); RDW-SD 57.7 fL; WBC 11.56 10^3/uL (4.4-10.8)
[2023-02-20] MEDS: LORazepam 1 MG TAB PO ×2 (09:28→11:49)
[2023-02-20] MEDS: Ciprofloxacin 500 MG TAB PO (09:28)
[2023-02-20] MEDS: Enoxaparin 40 MG/0.4 ML SYR SC (09:28)
[2023-02-20] MEDS: Polyethylene Glycol 3350 17 GM PACKET PO (09:28)
[2023-02-20] MEDS: Methocarbamol 750 MG TAB PO (09:28)
[2023-02-20] MEDS: Methadone Liquid 10 MG/ML 45 MG PO (09:48)
--- NOTE | 2023-02-20 10:22 | DSE_ITS ---
Date of service: 02/20/23 Time of Service: 10:23 DS: Diagnosis Discharge Diagnosis (1) Acute gangrenous cholecystitis: Status: Acute Asessment and Plan: Mabel has been discharged AGAINST MEDICAL ADVICE. We discussed the risks of that decision. I believe she has the capacity to make that decision. I will provide medications including antibiotics and analgesia. I explained to her the importance of managing her drain, and following up with us in the office this week for drain assistance, and staple removal. Discharge Plan Disposition Patient Disposition: Against Medical Advice Condition: Fair Discharge Details Reason For Visit: Acute cholecystitis Admit Date/Time: 02/11/23 10:10 Admit Provider: Johanne Ruiz Attending Provider: Johanne Ruiz [facility] Course: Mabel is a 42-year-old woman who presents to the hospital with abdominal pain. CAT scan demonstrated severe cholecystitis. She was brought to the operating room, and underwent exploratory laparotomy, abdominal washout, and peritoneal drainage. Postoperative treatment included ongoing intravenous antibiotics for gangrenous cholecystitis. Leukocytosis improved, and antibiotics were switched over to an enteral regimen. Chronic pain and anxiety were managed. On the evening of February 19 into February 20 she developed increasing frustration regarding her hospitalization and treatment. I discussed her diagnosis, comorbidities, treatment and prognosis with her in the morning of the . I recommended ongoing hospitalization, but she prefers leaving the hospital AGAINST MEDICAL ADVICE. I explained my concerns about this decision, which include worsening infection, which could result in a life-threatening problem. I think she has an understanding of that. I explained the importance of ongoing antibiotic therap y, which I will provide prescriptions for. I also explained the importance of managing her drain, and how that is complicated by her psychosocial comorbidities. She understands the challenges of that, and she understands that we will continue to assist her as an outpatient if needed. She also understands that she can come back to the hospital at any point. Home Meds and New Rx's Prescriptions: New ciprofloxacin HCl [Cipro] 500 mg tablet 500 mg PO BID Qty: 12 0RF Rx Instructions: Take 1 tablet by mouth in the morning and 1 tablet by mouth in the evening metronidazole 500 mg tablet 500 mg PO Q8H Qty: 18 0RF Rx Instructions: Take 1 tablet by mouth in the morning, 1 in the afternoon, and 1 in the evening. hydromorphone [Dilaudid] 4 mg tablet 4 mg PO Q8H PRN (Reason: pain) Qty: 9 0RF Rx Instructions: Take 1 tablet by mouth every 8 hours if needed for severe pain. As you know, this medication is quite addictive. Please take great caution when using this. This prescription will not be refilled. lorazepam [Ativan] 1 mg tablet 1 mg PO QHS PRN (Reason: anxiety) Qty: 3 0RF Rx Instructions: Take 1 tablet by mouth if needed for severe anxiety at nighttime. Do not mix this medication with Dilaudid. This medication can be addictive. This prescription will not be refilled Continued methadone 10 mg/5 mL Solution 90 mg PO DAILY Discharge Instructions Additional Instructions: Mabel, like we talked about, your decision to leave the hospital today is being made AGAINST MEDICAL ADVICE. Like we talked about, I highly recommend that you continue taking the antibiotics as prescribed. I have also provided prescriptions for your pain and anxiety medications. Please remember you are welcome to return to the hospital at any point. As we talked about, you should keep track of what is coming out of your surgical drain. Please record this volume. You should notify us immediately if the character of the drainage turns bloody, dark green, or white. We also talked about the importance of caring for your surgical site. You should wash it with warm soapy water at least 1 time per day. Please notify us immediately if you have any redness around the s urgical site, or drainage from the incision itself. I will have my office attempt to contact you tomorrow to establish an appointment later this week to assess the drain in the surgical site. As 1 last reminder, your medical condition is quite serious, and I do think you would benefit from ongoing hospitalization to assist with medical treatments, as well as establishing a more robust network to assist you with your other social challenges. Stand Alone Forms: Nursing Discharge Form Referrals: Lakeisha Gan NP [NURSE PRACTITIONER] - 02/22/23 8:00 am ( This appointment is at [facility] [phone]) Activity:: No lifting more than 10 p Equipment/Supplies:: Specimen cup for surgical Diet:: Nonfat DS: Summary Time Spent with Patient providing and/or coordinating discharge services: Greater than 30 minutes Status at Discharge Functional status at discharge: independent ambulation Overall status at discharge: patient is not back to baseline Mental Status: mental status grossly normal Speech and Movement: speech and movement normal Mood: congruent mood Affect: normal affect Exam GI Other: Surgical drain effluent is serosanguineous. Incision is clean and dry, there are no signs of superficial surgical site infection. Psych Mental Status: mental status grossly normal Speech and Movement: speech and movement normal Mood: congruent mood Affect: normal affect DS: Data Vitals/I&O Vitals and I&O: Vital Signs Temperature 97.7 F 02/20/23 06:33 Temperature Source Tympanic 02/20/23 06:33 Pulse 85 02/20/23 06:33 Pulse Rhythm Regular 02/20/23 09:52 Pulse 87 02/15/23 18:00 Respiratory Rate 18 02/20/23 06:33 Respiratory Effort Normal, Non-Labored 02/20/23 09:52 Respiratory Depth Normal 02/20/23 09:52 Respiratory Pattern Normal 02/20/23 09:52 Blood Pressure 110/68 02/20/23 06:33 Blood Pressure Mean 68 02/15/23 16:17 Blood Pressure Position Supine 02/14/23 08:00 Pulse Oximetry 100 02/20/23 06:33 Oxygen Delivery Method Room Air 02/20/23 06:33 Oxygen Flow Rate 0 02/20/23 06:33 Pain Level 9 02/19/23 20:55 Comment Informed nurse and CC of abnormal VS 02/19/23 19:51 Intake & Output 02/19/23 02/19/23 02/20/23 11:59 23:59 11:59 Intake Total 340 / 640 300 / 640 Output Total 40 / 40 70 / 70 Balance 300 / 600 300 / 600 -70 / -70 Intake: IV 100 / 100 Oral 240 / 480 240 / 480 Injectate 60 / 60 Right Mid Anterior Lateral 60 / 60 Abdomen Output: Drainage 40 / 40 70 / 70 Left Mid Anterior Medial 30 / 30 Abdomen Right Mid Anterior Lateral 10 / 10 70 / 70 Abdomen Other: Urine Appearance Clear Clear Comment toilet x2 Pt voiding independently Voiding Methods Toilet Data Completed and Pending Labs on day of discharge: Labs from last 24 hours 02/20/23 06:00 WBC 11.56 H RBC 3.24 L Hgb 8.5 L Hct 27.6 L MCV 85 MCH 26.2 L MCHC 30.8 L RDW 18.3 H Plt Count 707 H MPV 8.9 PFSH All Active Problems Folate deficiency anemia (Acute) Anemia, iron deficiency, inadequate dietary intake (Acute) DVT prophylaxis (Acute) Protein-calorie malnutrition, mild (Acute) Homeless (Acute) Poor dentition (Acute) Abscess of left leg (Acute) Thrombocytosis (Acute) Anemia (Chronic) Leukocytosis (leucocytosis) (Acute) Tobacco use (Acute 08/29/15) Intravenous drug abuse, continuous (Acute) Acute gangrenous cholecystitis (Acute) Diarrhea (Active) Medical History Depression (~2002) situational. took meds x6mo. no PP depression. Diabetes mellitus, type 2 Class C. Onset 21yo. doesnt take meds or see MDs when not . Nl eye exam 08/2015. Obesity 08/2015 BMI 34. Sepsis Tobacco use Surgical History Appendectomy Tonsillectomy and adenoidectomy Family History Mother Ulcerative colitis Social History Smoking/Tobacco Use Status: Current every day Tobacco Type: cigarettes Smoking risk assessment performed?: Yes Alcohol Intake: former Drug use: Never Substance use type: opiates Time Spent with Patient Time Spent with Patient: 70-84 minutes4 Time was spent: preparing to see the patient(eg.review tests), referring, communicating with other health director long term care and counseling the patient
--- NOTE | 2023-02-20 10:42 | PGE_ITS ---
Date of Service Date of service: 02/20/23 Time of Service: 10:43 Assessment and Plan Assessment and plan (1) Acute gangrenous cholecystitis: Status: Acute Assessment and plan: Mabel will leave AGAINST MEDICAL ADVICE, with prescriptions and oupatient support. Subjective Subjective Interval history since last seen: Mabel did well through yesterday afternoon, and tolerated the removal of one of her surgical drains without any problems. She had an hypotension, and a resp iratory rate of 18, with mild desaturations. She was treated with Narcan. Symptoms improved. I was not notified of this even until the morning of 02/20. Morning, she is frustrated about her ongoing hospitalization, and some interactions that she has had with the healthcare staff. She was removed from her previous hospital bed to a room closer to the nursing station. This morning, she prefers to leave the hospital AGAINST MEDICAL ADVICE. I spent over 60 minutes with her discussing her diagnosis, treatment, prognosis, her motivation to leave AGAINST MEDICAL ADVICE, and my concerns about her state of health with her decision to leave the hospital. Her thought process is rational, and she has insight regarding the seriousness of her choice to leave AGAINST MEDICAL ADVICE. She denied any intent to hurt herself. She seems to understand that this decision to leave AMA could result in worsening of her medical condition, which could represent threat to her life. She has an understanding of some of the symptoms that could represent worsening of her medical condition. She tells me that if she feels unwell after leaving, she will seek medical care here, or at another hospital. I offered to contact her support system outside of this hospital. She declined that. I explained the importance of follow-up in our office to assess the wound, her overall state of health, and to assist with management of her surgical drain. She provided the following information to me as reliable contacts. The phone number is [phone]. The email is [email or web address]. I read these back to her and she confirmed them. Objective Last Vital Signs Temp 97.7 F 02/20/23 06:33 Pulse 85 02/20/23 06:33 Resp 18 02/20/23 06:33 BP 110/68 02/20/23 06:33 Pulse Ox 100 02/20/23 06:33 Laboratory Results - last 24 hr 05/07/23 06:00 WBC 11.56 H RBC 3.24 L Hgb 8.5 L Hct 27.6 L MCV 85 MCH 26.2 L MCHC 30.8 L RDW 18.3 H Plt Count 707 H MPV 8.9 Time Spent with Patient Time Spent with Patient: >50 minutes Time was spent: preparing to see the patient(eg.review tests), referring, communicating with other health director of critical care, counseling the patient and care coordination
[2023-02-20 12:30] VITALS: PULSE 96
--- NOTE | 2023-02-20 12:31 | PDOC.CMDIS ---
- If Service Date Differs Date of service: 02/20/23 Time of Service: 12:31 Care Management Discharge Reason for Hospitalization: Acute cholecystitis Discharge Plan: Mabel left AMA. She was provided with an appointment to see Lakeisha Gan NP for a follow up visit on 02/22/23 at 0800. Mabel was given prescriptions for antibiotics as well as medications for pain and anxiety, per provider.
[2023-02-20 13:22] VITALS: BP 120/73; PULSE 99; RESP 18; TEMP 36.6; O2SAT 100
--- NOTE | 2023-02-20 13:22 | NUR.NOTE ---
Nursing Note: Pt electing to leave AMA. Charge nurse, green house manager, and surgeon aware and each at bedside to discuss pt's decision. Pt educated on care of drain, including drain sponge and tape. Pt educated on showering safely and emphasize no soaking or tub baths. Pt educated on how to empty ANDRADE drain, how to refill suction, how to measure output and what to look for with regard to changes in the bulb as well as signs of infection. All of the above outlined in discharge paperwork. Pt advised of risks of opioid use as outlined in narcotic contract and signature obtained. Pt states she understands above, and displays competence via return demonstration of dressing change and ANDRADE management. Pt informed that leaving AMA is, as stated, against medical advice. Pt states she understands the risks, up to and including sudden . Pt informed that she may return to the hospital at any time.
== END 2023-02-20 14:47 | disposition left against medical advice (07) | DRG 854 ==
LOC: ER 10:22 → ICU 13:08 → MS 02-15 20:25
PROVIDERS: Family Medicine; Internal Medicine; Student in an Organized Health Care Education/Training Program; Surgery; Admitting Provider Surgery; Emergency Provider Emergency Medicine; Visit Provider Surgery
PROC: 0FT40ZZ Resection of Gallbladder, Open Approach (ICD-10-PCS; CPT 47600; principal; 2023-02-11 14:15)
DX: A41.9 Sepsis, unspecified organism (principal); E44.1 Mild protein-calorie malnutrition; L02.416 Cutaneous abscess of left lower limb; K91.71 Accidental puncture and laceration of a digestive system organ or structure during a digestive system procedure; K81.0 Acute cholecystitis; R45.851 Suicidal ideations; F11.20 Opioid dependence, uncomplicated; F32.A Depression, unspecified; F17.210 Nicotine dependence, cigarettes, uncomplicated; E11.9 Type 2 diabetes mellitus without complications; Z59.00 Homelessness unspecified; D52.9 Folate deficiency anemia, unspecified; Z53.09 Procedure and treatment not carried out because of other contraindication; K82.8 Other specified diseases of gallbladder; K82.A1 Gangrene of gallbladder in cholecystitis; R19.7 Diarrhea, unspecified; D75.838 Other thrombocytosis; D50.8 Other iron deficiency anemias; K08.89 Other specified disorders of teeth and supporting structures; F14.90 Cocaine use, unspecified, uncomplicated
CPT/HCPCS: 47480; 44604; 36415; 36430; 36569; 36591; 76942; 80048; 80053; 80186; 80307; 81025; 83090; 83690; 84145; 85027; 86803; 86850; 86900; 86901; 86920; 87040; 87389; 87635; 88305; 93005; 96361; 96365; 96366; 96367; 96368; 96375; 96376; 99285; J1650; 71045; 74177; 81003; 82105; 82248; 82607; 82728; 82746; 83036; 83540; 83550; 83605; 83735; 84443; 85025; 85045; 85610; 85730; 86140; 87070; 87075; 87205; 88304; 93010; 93306; 99222; 99232; 99291; J0131; J0171; J1100; J1170; J1200; J1756; J1885; J2060; J2250; J2270; J2310; J2405; J2543; J2704; J3475; J3480; J3490; P9016

== ENCOUNTER 2023-02-22 09:20 | Emergency (ER) | payer MEDICAID, SELFPAY ==
[2023-02-22 09:25] VITALS: BP 123/69; PULSE 88; RESP 18; TEMP 36.8; O2SAT 100
--- NOTE | 2023-02-22 09:39 | W.ED.GENAD ---
Discharge Plan Disposition Patient Disposition: Home Discharge Details Clinical Impression: Acute postoperative pain of abdomen Primary Care Provider: [facility] Provider: Joe Arriola Home Meds and New Rx's Prescriptions: New metronidazole 500 mg tablet 500 mg PO Q8H Qty: 21 0RF ciprofloxacin HCl 500 mg tablet 500 mg PO Q12H Qty: 14 0RF Continued methadone 10 mg/5 mL Solution 45 mg PO DAILY ciprofloxacin HCl [Cipro] 500 mg tablet 500 mg PO BID Qty: 12 0RF Rx Instructions: Take 1 tablet by mouth in the morning and 1 tablet by mouth in the evening metronidazole 500 mg tablet 500 mg PO Q8H Qty: 18 0RF Rx Instructions: Take 1 tablet by mouth in the morning, 1 in the afternoon, and 1 in the evening. hydromorphone [Dilaudid] 4 mg tablet 4 mg PO Q8H PRN (Reason: pain) Qty: 9 0RF Rx Instructions: Take 1 tablet by mouth every 8 hours if needed for severe pain. As you know, this medication is quite addictive. Please take great caution when using this. This prescription will not be refilled. lorazepam [Ativan] 1 mg tablet 1 mg PO QHS PRN (Reason: anxiety) Qty: 3 0RF Rx Instructions: Take 1 tablet by mouth if needed for severe anxiety at nighttime. Do not mix this medication with Dilaudid. This medication can be addictive. This prescription will not be refilled Discharge Instructions Additional Instructions: You were seen in the emergency department for your abdominal pain. General surgery remove your drain. You are receiving antibiotics that you should take for an additional week. You do not need to see general surgery clinic tomorrow. Please follow-up as previously scheduled next week. For your pain please take medications as follows: 1. Take acetaminophen (Tylenol), 1,000 mg (two 500 mg tabs) every 6 hours 2. Take ibuprofen (Advil), 400 mg every 6 hours. Discharge Data Discharge Date/Time-TO BE ENTERED AT DEPARTURE: 02/22/23 13:02 Medical Decision Making This is an overall well-appearing normothermic and not tachycardic 42-year-old female who is approximately 10 days status post open attempted cholecystectomy now with new red drainage from her drain and increased erythema around her surgical filiberto. She has had no systemic symptoms of fevers nausea vomiting but she has had increasing pain. Vitals reassuring against sepsis so I did not order blood cultures nor treat empirically with antibiotics. Patient reports that she still has several days left of her oral antibiotics. She denies dysuria frequency chest pain shortness of breath so I am not concerned for urinary tract infection nor PE. Anticipate obtaining labs, keeping patient n.p.o. and having general surgery evaluate the patient in the ED. She also tells me that she is homeless and has outpatient housing arranged for her and [place] but she has no way to get a ride down [place]. She reports last night she slept in an DANE. We will plan on having case management meet with patient. CBC with leukocytosis and thrombocytosis mild normocytic anemia. Compared to prior leukocytosis is worse anemia is improved and thrombocytosis is more pronounced. Comprehensive metabolic panel with mildly elevated LFTs. Normal creatinine and no acute RICCI. Normal lipase reassuring against pancreatitis. 11:40 AM I spoke with Dr. Ruiz from general surgery who will come to evaluate the patient. 12:45 PM I spoke with Dr. Ruiz again from general surgery. She had pulled the patient's drain removed some of her filiberto. She advised an additional week of ciprofloxacin and metronidazole which I prescribed to the patient. Of note she is on methadone which could put her at risk for prolonged QTc interval on ECG given her ciprofloxacin use. Given that she has tolerated this in the past we will continue this prescription. Case management has seen the patient and has arranged for outpatient transportation to her housing. [facility] General Date/Time Provider Initiated Documentation: 02/22/23 09:22. HPI Narrative: This is a 42-year-old female with a history of acute gangrenous cholecystitis status post open attempted cholecystectomy which was aborted now with filiberto on outpatient antibiotics with plan for interval cholecystectomy in 4 to 6 weeks with erythema at her staple sites and increasing pain with serosanguineous drainage. Patient notes that she ran out of her pain meds yesterday. She noticed some small amount of bleeding in her drain site yesterday. Today she had mild increase abdominal pain. She has had no chest pain or shortness of breath. She has not had any fevers nausea nor vomiting. She denies dysuria and frequency. She is planning on seeing general surgery for interval cholecystectomy in the next month. Patient has taken no recent falls. Related Data Home Medications Medication Instructions Recorded Confirmed methadone 10 mg/5 mL oral solution 45 mg PO DAILY 02/11/23 02/22/23 ciprofloxacin HCl 500 mg tablet 500 mg PO BID cholecystitis #12 02/20/23 02/22/23 (Cipro) tabs hydromorphone 4 mg tablet 4 mg PO Q8H PRN pain #9 tabs 02/20/23 02/22/23 (Dilaudid) lorazepam 1 mg tablet (Ativan) 1 mg PO QHS PRN anxiety #3 tabs 02/20/23 02/22/23 metronidazole 500 mg tablet 500 mg PO Q8H cholecystitis #18 02/20/23 02/22/23 tabs ciprofloxacin HCl 500 mg tablet 500 mg PO Q12H #14 tabs 02/22/23 metronidazole 500 mg tablet 500 mg PO Q8H #21 tabs 02/22/23 Previous Rx's Medication Instructions Recorded ciprofloxacin HCl 500 mg tablet 500 mg PO BID cholecystitis #12 02/20/23 (Cipro) tabs hydromorphone 4 mg tablet 4 mg PO Q8H PRN pain #9 tabs 02/20/23 (Dilaudid) lorazepam 1 mg tablet (Ativan) 1 mg PO QHS PRN anxiety #3 tabs 02/20/23 metronidazole 500 mg tablet 500 mg PO Q8H cholecystitis #18 02/20/23 tabs ciprofloxacin HCl 500 mg tablet 500 mg PO Q12H #14 tabs 02/22/23 metronidazole 500 mg tablet 500 mg PO Q8H #21 tabs 02/22/23 Allergies Allergy/AdvReac Type Severity Reaction Status Date / Time No Known Allergies Allergy Unverified 02/22/23 09:31 General Stated Complaint: GenMedical FAUSTINO: 3 PFSH All Active Problems (Updated 02/22/23 @ 12:41 by Joe Arriola MD) Acute postoperative pain of abdomen (Acute) Folate deficiency anemia (Acute) Anemia, iron deficiency, inadequate dietary intake (Acute) Protein-calorie malnutrition, mild (Acute) Homeless (Acute) Poor dentition (Acute) Thrombocytosis (Acute) Anemia (Chronic) Leukocytosis (leucocytosis) (Acute) Tobacco use (Acute 08/29/15) Intravenous drug abuse, continuous (Acute) Acute gangrenous cholecystitis (Acute) Medical History Depression (~2002) situational. took meds x6mo. no PP depression. Diabetes mellitus, type 2 Class C. Onset 21yo. doesnt take meds or see MDs when not . Nl eye exam 08/2015. Obesity 08/2015 BMI 34. Sepsis Tobacco use Surgical History Appendectomy Tonsillectomy and adenoidectomy Family History Mother Ulcerative colitis Social History Smoking/Tobacco Use Status: Current every day Tobacco Type: cigarettes Smoking risk assessment performed?: Yes Alcohol Intake: former Drug use: Current Sobriety Substance use type: former substance user Do you feel safe in your relationship?: Yes Additional Social history: homeless Exam Narrative Exam Narrative: General: Well-appearing in no acute distress speaking in complete sentences. Head: Normocephalic, atraumatic. Eye: Pupils equal, round reactive to light. Extraocular eye movements intact. No conjunctival injection. No scleral icterus. Ear, nose, mouth, throat: Grossly normal inspection. Normal voice, handling secretions normally. Neck: Trachea midline. Cardiovascular: Well-perfused distal extremities. Respiratory: Nonlabored respiration. Gastrointestinal: Soft mildly distended minimally tender abdomen. Mild erythema surrounding midline open cholecystectomy filiberto. Midline drain site has been pulled. Drain site laterally has mild surrounding erythema. There is scant serosanguineous drainage in the bulb. No rebound. No guarding. Musculoskeletal: No edema. Moving all 4 extremities spontaneously. Skin: Normal for age and race, grossly normal temperature and turgor. No acute rash. Neurologic: Alert and appropriate, no apparent acute deficits. Psychiatric: Mood and manner are appropriate. Grooming and personal hygiene are appropriate. Course Vital Signs Vital signs: Vital Signs Temperature 36.8 C 02/22/23 09:25 Pulse 88 02/22/23 09:25 Respiratory Rate 18 02/22/23 09:25 Blood Pressure 123/69 02/22/23 09:25 Pulse Oximetry 100 02/22/23 09:25 Temperature 36.8 C 02/22/23 09:25 Temperature Source Oral 02/22/23 09:25 Pulse 88 02/22/23 09:25 Respiratory Rate 18 02/22/23 09:25 Respiratory Effort Normal, Non-Labored 02/22/23 09:33 Blood Pressure 123/69 02/22/23 09:25 Blood Pressure Position Supine 02/22/23 09:25 Pulse Oximetry 100 02/22/23 09:25 Oxygen Delivery Method Room Air 02/22/23 09:25 Oxygen Flow Rate 0 02/22/23 09:25
[2023-02-22] MEDS: fentaNYL 100 MCG/2 ML VIAL 50 MCG IVP (10:20)
[2023-02-22] MEDS: Normal Saline 500 ML IV (10:33)
[2023-02-22 10:36] LABS: Abs Immature Grans 0.07 10^3/uL (0.0-0.06); Absolute Lymphocyte Count 1.71 10^3/uL (1.2-3.4); Basophils % 0.6; Eosinophils % 1.5; HCT 31.2 % (36.0-46.0); HGB 9.7 g/dL (11.2-15.7); Immature Grans % 0.5; Lymphocytes % 11.9; MCHC 31.1 % (32.0-36.0); MCV 84 fL (80-95); MPV 8.5 fL (8.0-11.0); Monocytes % 5.6; Neutrophils % 79.9; RBC 3.73 10^6/uL (3.93-5.22); RDW 18.2 % (11.7-14.6); RDW-SD 55.9 fL; WBC 14.34 10^3/uL (4.4-10.8)
[2023-02-22 10:42] LABS: Absolute Basophil Count 0.09 10^3/uL (0.0-0.2); Absolute Eosinophil Count 0.22 10^3/uL (0.0-0.7); Absolute Neutrophil Count 11.46 10^3/uL (1.2-6.7)
[2023-02-22 10:46] VITALS: RESP 20
[2023-02-22 10:52] LABS: ALT 14 U/L (14-59); AST 12 U/L (15-37); Albumin 2.2 g/dL (3.4-5.0); Alkaline Phosphatase 124 U/L (46-116); Anion Gap 8.3 mmol/L (3-11); BUN 8 mg/dL (7-18); Bilirubin, Total 0.4 mg/dL (0.2-1.0); CO2 28.7 mmol/L (21.0-32.0); CREATININE 0.8 mg/dL (0.55-1.02); Calcium 8.8 mg/dL (8.5-10.1); Chloride 100 mmol/L (98-107); Estimated GFR 95.46 (mL/min/1.73m2); Glucose 263 mg/dL (74-106); Lipase 27 U/L (16-77); Potassium 3.5 mmol/L (3.5-5.1); Sodium 137 mmol/L (136-145); Total Protein 7.7 g/dL (6.4-8.2)
[2023-02-22 10:54] LABS: Diff Comment Diff Reviewed; Platelet Count 850 10^3/uL (130-400); RBC Morphology Normal
--- NOTE | 2023-02-22 11:55 | NUR.NOTE ---
Nursing Note: PT's [facility]:
[2023-02-22] MEDS: metroNIDAZOLE 500 MG TAB PO (12:50)
[2023-02-22] MEDS: Ciprofloxacin 500 MG TAB PO (12:50)
--- NOTE | 2023-02-22 13:42 | W.PM.PROGNOT ---
Date of Service Date of service: 02/22/23 Time of Service: 12:00 Subjective Subjective Interval history since last seen: PT seen in ED today. PT came in b/c she thought her incision was red. Pt left ama tuesday after she required narcan from narcotic overdose. She did recieve Rx for abx- cipro and flgagyl. She says she has been taking them. She has apt w/ [facility] in am. CM did find them housing in [facility]. - no headaches. No CP or SOB. no productive cough. no dysuria. no leg pain or swelling. The abscess on the LLE has resolved. No diarrhea. Pt denies N/V. SHe says she is eating. She denies fevers/chills. PHYSICAL EXAM GENERAL APPEARANCE: Alert, healthy appearance, oriented, x 3,? in no acute distress HYDRATION: Well hydrated HEAD, EYES, EARS, NECK, THROAT: Head is normocephalic, pupils equal, round, reactive to light and accommodation, ocular movement intact, sclera clear and no jaundice. ?Dentition intact- poor. No thrush NECK: ? Trachea midline.? ? No JVD LUNGS: normal respiration/normal chest excursion. ?Clear to auscultation bilaterally. ?No wheeze. ?HEART: Regular rate and rhythm. no murmurs EXTREMITY: No edema or cyanosis.? no leg pain, redness, swelling.? abscess is healed. ABDOMEN: soft and non-tender to palpation.? Normal bowel sounds.? There is no redness/drainage/swelling/hematoma. drain site is c/d/i. drain output is serous. This drain is removed. The other drain site is well healed. labs reviewed. WBC / plts are mildly increased. She finishes the abx in a few days and will give an additional week of po abx. F/u in one weeks times. ? plan: repeat labs w/ next appt. repeat ct in 4-6 wks time consider GB surgery in 8-12 wks Objective Last Vital Signs Temp 36.8 C 02/22/23 09:25 Pulse 88 02/22/23 09:25 Resp 20 02/22/23 10:46 BP 123/69 02/22/23 09:25 Pulse Ox 100 02/22/23 09:25 Laboratory Results - last 24 hr 02/22/23 02/22/23 02/22/23 10:25 10:25 10:25 WBC 14.34 H RBC 3.73 L Hgb 9.7 L Hct 31.2 L MCV 84 MCH 26.0 L MCHC 31.1 L RDW 18.2 H Plt Count 850 H* MPV 8.5 Immature Gran % 0.5 Neutrophils % 79.9 Lymphocytes % 11.9 Monocytes % 5.6 Eosinophils % 1.5 Basophils % 0.6 Nucleated RBC % 0.0 Absolute Neutrophils 11.46 H Absolute Lymphocytes 1.71 Absolute Monocytes 0.80 Absolute Eosinophils 0.22 Absolute Basophils 0.09 RBC Morphology Normal Sodium 137 Potassium 3.5 Chloride 100 Carbon Dioxide 28.7 Anion Gap 8.3 BUN 8 Creatinine 0.8 Est GFR (CKD-EPI 2020) 95.46 Glucose 263 H Calcium 8.8 Total Bilirubin 0.4 AST 12 L ALT 14 Alkaline Phosphatase 124 H Total Protein 7.7 Albumin 2.2 L Lipase 27 Cancelled Time Spent with Patient Time Spent with Patient: 25-34 minutes Time was spent: preparing to see the patient(eg.review tests), obtaining and/or reviewing separately otained hiistory, ordering medications,tests, procedures, referring, communicating with other health personal caregiver, indepentently interpreting results, counseling the patient and care coordination
== END 2023-02-22 13:02 | disposition home or self-care (01) ==
PROVIDERS: Emergency Provider Emergency Medicine
DX: R10.9 Unspecified abdominal pain (principal); K91.89 Other postprocedural complications and disorders of digestive system; G89.18 Other acute postprocedural pain; F11.90 Opioid use, unspecified, uncomplicated; Z59.00 Homelessness unspecified
CPT/HCPCS: 80053; 83690; 96361; 96374; 99284; 85025; J3010